=== PATIENT | female | born 1970 | race Caucasian/White ===

== ENCOUNTER 2025-02-28 14:22 | Inpatient (IN) | payer MEDICARE, SELFPAY ==
[2025-02-28] VITALS (119 sets, daily range): BP systolic 74–118; BP diastolic 33–72; PULSE 102–127; RESP 13–40; TEMP 35–39.1; O2SAT 89–100
--- NOTE | 2025-02-28 14:15 | DI.RAD_ITS ---
Exam(s) XR PORTABLE CHEST AP EXAM: XR PORTABLE CHEST AP CLINICAL HISTORY: hypoxia cough TECHNIQUE: 2D digital imaging was performed of the chest. One image was obtained. An AP view was obtained. COMPARISON: No exams were available for comparison FINDINGS: MEDIASTINUM: Normal. HEART: Normal. PULMONARY VASCULATURE: Normal. LUNGS: There are airspace opacities bilaterally in the lungs consistent with pneumonia. The findings are most marked on the right side. PLEURAL SPACE: No pleural effusion or pneumothorax. BONE:Within normal limits for the patient's age. OTHER FINDINGS:Normal. IMPRESSION: 1. Bilateral airspace opacities consistent with multifocal pneumonia. 2. The preliminary [facility] report was reviewed. DATA REPOSITORY: RADIATION DOSE DELIVERED:
--- NOTE | 2025-02-28 14:15 | RT.EKG_ITS ---
APPROVED REPORT Exam: Resting ECG Reason for Exam: AMS Patient Location: E HR:121 bpm ECG Measurements Heart Rate 121 AXIS NJ 153 P 85 QRSd 88 QRS 71 QT 317 T -12 QTc 450 Conclusion Sinus tachycardia...rate> 99 No STEMI
[2025-02-28] MEDS: Normal Saline 1,000 ML 1000 ML IV (14:36)
--- NOTE | 2025-02-28 14:37 | ED.GENADUL_ITS ---
Discharge Plan Discharge Details Chief Complaint: AMS/LOC Admit Date/Time: 02/28/25 21:30 Admit Provider: Kylee Fuentes Attending Provider: Kylee Fuentes Primary Care Provider: Unknown,Unknown ED Provider: Kevin Julian Discharge Data Discharge Date/Time-TO BE ENTERED AT DEPARTURE: 02/28/25 21:34 HPI General Date/Time Provider Initiated Documentation: 02/28/25 14:51 . HPI Narrative: MDM/Narrative: 54-year-old female with no known past medical history significant for respiratory disease or cardiac disease presents for altered mental status hypotension, tachycardia hypoxia in the setting of being diagnosed with COVID yesterday. Vital signs notable for hypotension, tachycardia tachypnea, exam notable for altered mental status, increased work of breathing, rhonchi bilaterally, weak thready pulses in all 4 extremities. Bedside pedraza exam shows no evidence of pericardial effusion, lung sliding bilaterally, however B-lines diffusely, and a impressively collapsible IVC. Given the history and exam findings I am most concerned for septic shock, given the patient is remaining hypoxic on supplemental O2 via nasal cannula, high flow nasal cannula was provided, with significant improvement of work of breathing and oxygenation. Patient was started in the field on norepinephrine, will continue, as well as start blood cultures, 30 mL/kg of IV fluid resuscitation with lactated Ringer's and broad-spectrum antibiotics including vancomycin and cefepime. Given known COVID infection acute hypoxia, will also consider thromboembolic disease as cause for patient's considerable and quick decline since yesterday as per family. Will obtain CT to rule out pulmonary embolism, as well as screening labs including troponin, EKG to rule out possible ischemia. Patient will be admitted, suspect will require ICU level. ED course: Shortly after arrival, patient's work of breathing greatly increased displaying intercostal, supraclavicular and abdominal retractions, with a respiratory rate of 40. Patient then began ripping off of her high flow nasal cannula, given increased work of breathing and significantly elevated respiratory rate patient was intubated for hypoxemic respiratory failure. Patient was continued on pressor support, and was able to maintain maps without significant increase of her norepinephrine drip. Following intubation and nasogastric tube was attempted to be advanced but a patient's RN however met resistance, I then took a video laryngoscope, and visualized the passage of the nasogastric tube into the esophagus and advanced until about 60 cm of the lip. Shortly thereafter I was called bedside as patient became acutely hypoxic, there was concern by RN that the nasogastric tube may have been impeding the patient's ET tube and she retracted the nasogastric tube. Confirmatory chest x-ray shows it is not within the the stomach and sitting at the mid esophagus. Will reevaluate after patient undergo CT imaging to determine final disposition. CT imaging shows no acute thrombus however it is notable for severe multifocal pneumonia. Case discussed with the patient's mother who notes that the patient does have a prior history of IV drug use, suspicious that this may represent a endocarditis, or perhaps an explanation as to how the patient may have contracted a immunomodulating chronic disease such as HIV AIDS that could have led to this severe pneumonia. Case discussed with Dr. Fuentes hospitalist who is in agreement with plan to admit patient as her lactic acidosis has improved, her ABG shows improving pH, she has remained stable on minimal pressure support and oxygen. Disposition: Admit to ICU HPI: 54-year-old female presents for evaluation shortness of breath. As per EMS who provides the bulk of the history, patient tested positive for COVID at home 2 days ago. She was feeling worse today as per family and called EMS when she became acutely short of breath. They noted that she was severely hypoxic on room air down to 60%, as well as hypotensive. Patient was started on nor epi for pressure support, and and supplemental oxygen initially nasal cannula which was not sufficient, however when trialed on BiPAP patient did not tolerate. History of present illness is limited due to the patient's clinical status. ROS: Negative besides as mentioned above Exam: Gen: A&O to person and place, in acute distress HEENT: NCAT, EOMI, not icteric. External ears normal. No rhinorrhea. Moist mucous membranes. Multiple missing teeth Neck: Supple, full range of motion, no observable masses, No meningeal sign. Lungs: Tachypneic, acute respiratory distress, bilateral rhonchorous breath sounds, frequent coughing. CV: Tachycardia, no edema. Abdomen: Soft, nondistended, No rebound tenderness. MSK: No joint swelling, no redness. Skin: No rashes, petechiae, lesions. Normal color per patient. Neuro: Normal Gait, Grossly intact. Psych: Appropriate for situation. Rhythm: Sinus tachycardia Rate: 121 bpm [place]: Normal axis Intervals: Normal intervals Other findings: No acute ST segment or T wave changes to suggest acute ischemia. Labs: 02/28/25 15:05 Blood Blood Culture - Pending 02/28/25 14:32 Blood Blood Culture - Pending Laboratory Tests Range/Units 02/28/25 02/28/25 02/28/25 14:32 17:16 17:25 WBC (4.4-10.8) 10^3/uL 3.32 L RBC (3.93-5.22) 10^6/uL 4.05 Hgb (11.2-15.7) g/dL 9.6 L Hct (36.0-46.0) % 31.4 L MCV (80-95) fL 78 L MCH (27.0-33.0) pg 23.7 L MCHC (32.0-36.0) % 30.6 L RDW (11.7-14.6) % 18.3 H Plt Count (130-400) 10^3/uL 357 MPV (8.0-11.0) fL 9.6 Immature Gran % % 0.0 Neutrophils % % 36.0 Band Neutrophils % % 17 Lymphocytes % % 29.0 Atypical Lymphs % % 4 Monocytes % % 7.0 Eosinophils % % 0.0 Basophils % % 0.0 Metamyelocytes % 7 Nucleated RBC % (0.0-0.3) % 0.0 Absolute Neutrophils (1.2-6.7) 10^3/uL 1.76 Absolute Lymphocytes (1.2-3.4) 10^3/uL 1.10 L Absolute Monocytes (0.1-0.8) 10^3/uL 0.23 Absolute Eosinophils (0.0-0.7) 10^3/uL 0.00 Absolute Basophils (0.0-0.2) 10^3/uL 0.00 RBC Morphology Normal PT (9.1-11.1) sec 12.6 H INR (0.9-1.1) 1.3 H APTT (20.6-30.2) sec 28.1 ABG Sample Site Left Radial ABG pH (7.35-7.45) 7.24 L ABG pCO2 (35-45) mmHg 57 H ABG pO2 (80-105) mmHg 73 L ABG HCO3 (22-26) mmol/L 24 ABG Total CO2 (23-27) mmol/L 23 ABG O2 Saturation (95-98) % 93 L ABG Base Excess (-2-3) mmol/L -4 L VBG pH (7.31-7.41) 7.32 VBG pCO2 (41-51) mmHg 45 VBG pO2 mmHg 48 VBG HCO3 (23-28) mmol/L 23 VBG Total CO2 (24-29) mmol/L 22 L VBG O2 Saturation % 80 VBG Base Excess (-2-3) mmol/L -3 L VBG Lactate (<or=2.0) mmol/L 3.6 H* FiO2 % 65 Sodium (136-145) mmol/L 135 L Potassium (3.5-5.1) mmol/L 2.5 L* Chloride (98-107) mmol/L 101 Carbon Dioxide (20.0-31.0) mmol/L 23.5 Anion Gap (3-11) mmol/L 10.5 BUN (9-23) mg/dL 17 Creatinine (0.55-1.02) mg/dL 0.85 Est GFR (CKD-EPI 2020) (mL/min/1.73m2) 69.91 Glucose (74-106) mg/dL 142 H Calcium (8.3-10.6) mg/dL 7.4 L Magnesium (1.6-2.6) mg/dL 1.3 L Total Bilirubin (0.2-1.2) mg/dL 0.4 AST (<34) U/L 27 ALT (10-49) U/L 15 Alkaline Phosphatase (46-116) U/L 80 Troponin I (<35) ng/L 21 NT-Pro-B Natriuret Pep (<300) pg/mL 2916 H Total Protein (5.7-8.2) g/dL 6.3 Albumin (3.2-5.0) g/dL 3.7 Lipase (<53) U/L 16 Procalcitonin ng/mL 14.05 Urine Color (Yellow) Yellow Urine Clarity (Clear) Clear Urine pH (5-8) 5.5 Ur Specific [place] (1.005-1.025) 1.020 Urine Protein (Neg-Trace) mg/dL 100 H Urine Ketones (Negative) mg/dL Trace H Urine Blood (Negative) Large H Urine Nitrite (Negative) Negative Urine Bilirubin (Negative) Negative Urine Urobilinogen (Up to 0.2) mg/dL 0.2 Ur Leukocyte Esterase (Negative) Small H Urine RBC (0-2) HPF 10-20 H Urine WBC (0-5) HPF 10-20 H Ur Epithelial Cells (Negative) HPF Many Urine Crystals (Negative) HPF Negative Urine Bacteria (Negative) HPF Few Urine Casts (Negative) LPF Negative Urine Mucus (Negative) Negative Ur Culture Indicated? No/Sq. Contamination Urine Glucose (Negative) mg/dL 250 H COVID-19 Source SARS-CoV-2 (PCR) (Negative) Influenza Type A (PCR) (Negative) Influenza Type B (PCR) (Negative) RSV (PCR) (Negative) Range/Units 02/28/25 02/28/25 02/28/25 17:33 20:04 20:08 WBC (4.4-10.8) 10^3/uL RBC (3.93-5.22) 10^6/uL Hgb (11.2-15.7) g/dL Hct (36.0-46.0) % MCV (80-95) fL MCH (27.0-33.0) pg MCHC (32.0-36.0) % RDW (11.7-14.6) % Plt Count (130-400) 10^3/uL MPV (8.0-11.0) fL Immature Gran % % Neutrophils % % Band Neutrophils % % Lymphocytes % % Atypical Lymphs % % Monocytes % % Eosinophils % % Basophils % % Metamyelocytes % Nucleated RBC % (0.0-0.3) % Absolute Neutrophils (1.2-6.7) 10^3/uL Absolute Lymphocytes (1.2-3.4) 10^3/uL Absolute Monocytes (0.1-0.8) 10^3/uL Absolute Eosinophils (0.0-0.7) 10^3/uL Absolute Basophils (0.0-0.2) 10^3/uL RBC Morphology PT (9.1-11.1) sec INR (0.9-1.1) APTT (20.6-30.2) sec ABG Sample Site ABG pH (7.35-7.45) ABG pCO2 (35-45) mmHg ABG pO2 (80-105) mmHg ABG HCO3 (22-26) mmol/L ABG Total CO2 (23-27) mmol/L ABG O2 Saturation (95-98) % ABG Base Excess (-2-3) mmol/L VBG pH (7.31-7.41) VBG pCO2 (41-51) mmHg VBG pO2 mmHg VBG HCO3 (23-28) mmol/L VBG Total CO2 (24-29) mmol/L VBG O2 Saturation % VBG Base Excess (-2-3) mmol/L VBG Lactate (<or=2.0) mmol/L 2.0 FiO2 % Sodium (136-145) mmol/L Potassium (3.5-5.1) mmol/L 2.8 L* Chloride (98-107) mmol/L Carbon Dioxide (20.0-31.0) mmol/L Anion Gap (3-11) mmol/L BUN (9-23) mg/dL Creatinine (0.55-1.02) mg/dL Est GFR (CKD-EPI 2020) (mL/min/1.73m2) Glucose (74-106) mg/dL Calcium (8.3-10.6) mg/dL Magnesium (1.6-2.6) mg/dL Total Bilirubin (0.2-1.2) mg/dL AST (<34) U/L ALT (10-49) U/L Alkaline Phosphatase (46-116) U/L Troponin I (<35) ng/L 32 32 NT-Pro-B Natriuret Pep (<300) pg/mL Total Protein (5.7-8.2) g/dL Albumin (3.2-5.0) g/dL Lipase (<53) U/L Procalcitonin ng/mL Urine Color (Yellow) Urine Clarity (Clear) Urine pH (5-8) Ur Specific [place] (1.005-1.025) Urine Protein (Neg-Trace) mg/dL Urine Ketones (Negative) mg/dL Urine Blood (Negative) Urine Nitrite (Negative) Urine Bilirubin (Negative) Urine Urobilinogen (Up to 0.2) mg/dL Ur Leukocyte Esterase (Negative) Urine RBC (0-2) HPF Urine WBC (0-5) HPF Ur Epithelial Cells (Negative) HPF Urine Crystals (Negative) HPF Urine Bacteria (Negative) HPF Urine Casts (Negative) LPF Urine Mucus (Negative) Ur Culture Indicated? Urine Glucose (Negative) mg/dL COVID-19 Source Nasopharynx SARS-CoV-2 (PCR) (Negative) Positive A Influenza Type A (PCR) (Negative) Negative Influenza Type B (PCR) (Negative) Negative RSV (PCR) (Negative) Negative Range/Units 02/28/25 20:20 WBC (4.4-10.8) 10^3/uL RBC (3.93-5.22) 10^6/uL Hgb (11.2-15.7) g/dL Hct (36.0-46.0) % MCV (80-95) fL MCH (27.0-33.0) pg MCHC (32.0-36.0) % RDW (11.7-14.6) % Plt Count (130-400) 10^3/uL MPV (8.0-11.0) fL Immature Gran % % Neutrophils % % Band Neutrophils % % Lymphocytes % % Atypical Lymphs % % Monocytes % % Eosinophils % % Basophils % % Metamyelocytes % Nucleated RBC % (0.0-0.3) % Absolute Neutrophils (1.2-6.7) 10^3/uL Absolute Lymphocytes (1.2-3.4) 10^3/uL Absolute Monocytes (0.1-0.8) 10^3/uL Absolute Eosinophils (0.0-0.7) 10^3/uL Absolute Basophils (0.0-0.2) 10^3/uL RBC Morphology PT (9.1-11.1) sec INR (0.9-1.1) APTT (20.6-30.2) sec ABG Sample Site Right Radial ABG pH (7.35-7.45) 7.34 L ABG pCO2 (35-45) mmHg 41 ABG pO2 (80-105) mmHg 63 L ABG HCO3 (22-26) mmol/L 22 ABG Total CO2 (23-27) mmol/L 21 L ABG O2 Saturation (95-98) % 92 L ABG Base Excess (-2-3) mmol/L -4 L VBG pH (7.31-7.41) VBG pCO2 (41-51) mmHg VBG pO2 mmHg VBG HCO3 (23-28) mmol/L VBG Total CO2 (24-29) mmol/L VBG O2 Saturation % VBG Base Excess (-2-3) mmol/L VBG Lactate (<or=2.0) mmol/L FiO2 % 60 Sodium (136-145) mmol/L Potassium (3.5-5.1) mmol/L Chloride (98-107) mmol/L Carbon Dioxide (20.0-31.0) mmol/L Anion Gap (3-11) mmol/L BUN (9-23) mg/dL Creatinine (0.55-1.02) mg/dL Est GFR (CKD-EPI 2020) (mL/min/1.73m2) Glucose (74-106) mg/dL Calcium (8.3-10.6) mg/dL Magnesium (1.6-2.6) mg/dL Total Bilirubin (0.2-1.2) mg/dL AST (<34) U/L ALT (10-49) U/L Alkaline Phosphatase (46-116) U/L Troponin I (<35) ng/L NT-Pro-B Natriuret Pep (<300) pg/mL Total Protein (5.7-8.2) g/dL Albumin (3.2-5.0) g/dL Lipase (<53) U/L Procalcitonin ng/mL Urine Color (Yellow) Urine Clarity (Clear) Urine pH (5-8) Ur Specific [place] (1.005-1.025) Urine Protein (Neg-Trace) mg/dL Urine Ketones (Negative) mg/dL Urine Blood (Negative) Urine Nitrite (Negative) Urine Bilirubin (Negative) Urine Urobilinogen (Up to 0.2) mg/dL Ur Leukocyte Esterase (Negative) Urine RBC (0-2) HPF Urine WBC (0-5) HPF Ur Epithelial Cells (Negative) HPF Urine Crystals (Negative) HPF Urine Bacteria (Negative) HPF Urine Casts (Negative) LPF Urine Mucus (Negative) Ur Culture Indicated? Urine Glucose (Negative) mg/dL COVID-19 Source SARS-CoV-2 (PCR) (Negative) Influenza Type A (PCR) (Negative) Influenza Type B (PCR) (Negative) RSV (PCR) (Negative) Radiology: Accession No. : [id number] Creator : KYLEE RUBIN Dictator : KYLEE RUBIN Anode Rebuilder : Hydro Pneumatic Tester : KYLEE RUBIN Approver2 : Report Date : 02/28/2025 16:36:58 * Exam(s) XR PORTABLE CHEST AP EXAM: XR PORTABLE CHEST AP CLINICAL HISTORY: hypoxia cough TECHNIQUE: 2D digital imaging was performed of the chest. One image was obtained. An AP view was obtained. COMPARISON: No exams were available for comparison FINDINGS: MEDIASTINUM: Normal. HEART: Normal. PULMONARY VASCULATURE: Normal. LUNGS: There are airspace opacities bilaterally in the lungs consistent with pneumonia. The findings are most marked on the right side. PLEURAL SPACE: No pleural effusion or pneumothorax. BONE:Within normal limits for the patient's age. OTHER FINDINGS:Normal. IMPRESSION: 1. Bilateral airspace opacities consistent with multifocal pneumonia. 2. The preliminary [facility] report was reviewed. DATA REPOSITORY: RADIATION DOSE DELIVERED: Accession No. : [id number] Creator : KYLEE RUBIN Dictator : KYLEE RUBIN Anode Rebuilder : Hydro Pneumatic Tester : KYLEE RUBIN Approver2 : Report Date : 02/28/2025 22:07:36 * Exam(s) CT CHEST PE CTA EXAM: CT CHEST PE CTA CLINICAL HISTORY: hypoxia, COVID+. TECHNIQUE: Imaging Protocol: Axial CT angiography was performed with multi- slice acquisition and multi-planar and/or 3D reconstructions. Lung Computer Aided Detection (CAD) was utilized. CONTRAST MATERIAL: Intravenous: Omnipaque 350 contrast volume:70 mL COMPARISON: CR,XR XR PORTABLE CHEST AP from 02/28/2025 FINDINGS: The examination is limited due to patient motion artifact. Tracheobronchial tree: Patent where visualized. No bronchiectasis. Pulmonary parenchyma: Multifocal ground-glass opacities and areas of consolidation are present throughout all 5 lobes. There are cavitary changes present within the infiltrates. No architectural distortion. Pulmonary Arteries: No evidence of filling defect to suggest pulmonary emboli. Mediastinum and Janel: No dominant adenopathy or fluid collection. The esophagus is unremarkable. There is a large hiatal hernia. Visualized thyroid gland: Unremarkable. Pleura: No effusion or pneumothorax. Heart: The heart is not dilated. No coronary artery calcifications are seen. No pericardial effusion. Aorta: Thoracic aorta non-dilated. No evidence of dissection. Upper abdomen: Status post cholecystectomy. Status post gastric bypass surgery. Tubes, Catheters, and Lines: The endotracheal tube is in good position at least 3 cm from the edis. The tip of the enteric tube is in the mid esophagus. Soft tissues: Unremarkable. Bones: Within normal limits for the patient's age. IMPRESSION: 1. No evidence of pulmonary embolism, thoracic aortic dissection or aneurysm. 2. Multifocal ground-glass opacities consistent with pneumonia several areas of which show cavitary/cystic changes. Multifocal pneumonia should be considered. Atypical pathogens should be considered. Cavitation with COVID-19 can be a consequence of the infection or the result of co-infection with a bacterial, fungal or mycobacterial pathogen. Septic emboli or underlying cavitary process such as emphysema or bronchiectasis should also be considered. 3. The endotracheal tube is in good position above the edis. 4. The enteric tube tip is seen in the mid esophagus. 5. The preliminary [facility] report was reviewed. RADIATION DOSE DELIVERED: 104.3mGy.cm Total DLP DATA REPOSITORY: All CT scans at this facility are submitted to the National Radiology Data Registry (NRDR) Dose Index Registry (DIR) with the [employer] (A[employer]). RADIATION OPTIMIZATION: All CT scans at this facility use at least one of these dose optimization techniques: automated exposure control; mA and/or kV adjustment per patient size (includes targeted exams where dose is matched to clinical indication); or iterative reconstruction. General Stated Complaint: AMS/LOC TALHA: 2 Course Vital Signs Vital signs: Vital Signs Pulse 125 H 12/21/25 14:23 Respiratory Rate 35 H 02/28/25 14:23 Blood Pressure 93/55 L 02/28/25 14:23 Pulse Oximetry 95 02/28/25 14:23 Pulse 125 H 02/28/25 14:23 Respiratory Rate 35 H 02/28/25 14:23 Blood Pressure 93/55 L 02/28/25 14:23 Blood Pressure Position Sitting 02/28/25 14:23 Pulse Oximetry 95 02/28/25 14:23 Oxygen Delivery Method Non-Rebreather 02/28/25 14:23 Oxygen Flow Rate 60 02/28/25 14:32 Fraction of Inspired Oxygen (FIO2) 58 02/28/25 14:32 Lab/Test Results Lab/Test Results: 02/28/25 14:22 Blood Blood Culture - Pending 02/28/25 14:22 Blood Blood Culture - Pending Procedure Airway Management Date of Procedure: 02/28/25 Patient Consented: Verbally and Emergent Case Indication: Respiratory failure and Reduced level of consciousness Provider that performed the procedure: Kevin Julian Sedation administered by provider performing procedure: Yes. Induction setup: Pt. evaluated prior to induction, Pt. Ramped, Head of Bed Elevated, Rapid Sequence Induction and Cricoid Pressure Applied Airway Type: Intubation Grade: Paralytic(indicate dose given): Succinylcholine (18 mg) Vasoactive Medication(indicate dose given): Norepinephrine (15 ug/hr) Post Induction Medication Management(indicate dose given): Fentanyl IV (mcg/hour) (25) and Propofol (mcg/kg/min) (20) Gastric Tube: Other (Placed by myself under video laryngoscope guidance) Procedure Complications: None Procedure Outcome: Successful Central Line Placement Date of Procedure: 02/28/25 Time of Procedure: 18:45 Provider that performed the procedure: Kevin Julian Indication: Central venous access, Definitive access and Hypotension Patient Consented: Emergent Case Standard Time Out Performed: Yes Sterility: Sterile Laterality: Left Insertion Site: Internal Jugular (IJ) Central Line Type: Triple Lumen Catheter Insertion Procedure: Vessel accessed with needle, Guidewire placed with ease, Extension tubing fills with blood, then empties easily with gravity, Dermatotomy (skin leighton) made with scalpel, Dilator placed without resistance, Introducer/Catheter placed without resistance, Guidewire removed and Claves placed, blood withdrawn, ports flushed and clamped Ultrasound: Other (Used, images not saved) Number of Attempts(see previous attempts in note section): 1 Post Procedure: good blood return, all ports aspirated, flushed, capped and sutured in place with 2-0 silk Post Procedure X-Ray: tip of catheter in good position Dressing: Tegaderm applied and BioPatch applied Procedure Tolerated: No Complications Procedure Outcome: Successful Critical Care Time Critical Care Time Critical Care Time: Yes Total Critical Care Time: 95 Attestation: Upon my evaluation, this patient had a high probability of imminent or life- threatening deterioration due to septic shock, acute respiratory failure, which required my direct attention, intervention, and personal management. I have personally provided [ ] minutes of critical care time exclusive of time spent on separately billable procedures. Time includes review of laboratory data, radiology results, discussion with consultants, and monitoring for potential decompensation. Interventions were performed as documented above, including monitoring of critical vital signs, ordering critical medications from bedside, and re-assessing effectiveness, repeating critical exam findings, and reviewing patients' chart. [facility] All Active Problems (Updated 02/28/25 @ 23:16 by Kylee Fuentes MD) UTI (urinary tract infection) (Acute) Hematuria (Acute) Hiatal hernia (Chronic) COVID (Acute) Low magnesium level (Acute) Low mean corpuscular volume (MCV) (Acute) Elevated brain natriuretic peptide (BNP) level (Acute) Respiratory failure (Acute) Pneumonia (Acute) Medical History (Updated 02/28/25 @ 23:16 by Kylee Fuentes MD) Hypokalemia Social History Smoking/Tobacco Use Status: Unknown Smoking risk assessment performed?: Yes Substance use type: unknown POCUS Exam (ED) [place] Exam DATE OF EXAM: 02/28/25 PROVIDER THAT PERFORMED THE STUDY: Kevin Julian IS THIS A REPEAT EXAM DURING THIS ENCOUNTER: No REASON FOR EXAM: Altered mental status, Hypotension and Shock VISUALIZED STRUCTURES: Cardiac Four Chambers, Heart, Inferior Vena Cava, Lung/left side and Lung/right side PERTINENT FINDINGS/IMPRESSION: Abnormal IVC, details of abnormalities: B-lines throughout lung pandya, collapsible IVC, concerning for pneumosepsis ; lung sliding present on left side, lung sliding present on right side, No global cardiac hypokinesis noted and No pericardial effusion DIFFERENTIAL DIAGNOSES: Septic shock versus obstructive shock INCIDENTAL FINDINGS: B-lines present throughout all lung pandya Echocardiography/Transthoracic Limited Exam: Exam Complete Chest Limited Exam: Exam Complete Abdominal Limited Exam: Did not tolerate exam Retroperitoneal Limited Exam: Did not tolerate exam
[2025-02-28 14:42] LABS: BE (Venous) -3 mmol/L (-2-3); HCO3 (Venous) 23 mmol/L (23-28); O2 Sat (Venous) 80 %; TCO2 (Venous) 22 mmol/L (24-29); pCO2 (Venous) 45 mmHg (41-51); pO2 (Venous) 48 mmHg
[2025-02-28 14:44] LABS: HCT 31.4 % (36.0-46.0); HGB 9.6 g/dL (11.2-15.7); MCH 23.7 pg (27.0-33.0); MCHC 30.6 % (32.0-36.0); MCV 78 fL (80-95); MPV 9.6 fL (8.0-11.0); Platelet Count 357 10^3/uL (130-400); RBC 4.05 10^6/uL (3.93-5.22); RDW 18.3 % (11.7-14.6); RDW-SD 51.4 fL; WBC 3.32 10^3/uL (4.4-10.8)
[2025-02-28] MEDS: Lactated Ringers 1,000 ML 2000 ML IV (14:56)
[2025-02-28 14:57] LABS: Abs Immature Grans 0.00 10^3/uL (0.0-0.06); Immature Grans % 0.0 %; RBC Morphology Normal
--- NOTE | 2025-02-28 15:00 | DI.CT_ITS ---
Exam(s) CT CHEST PE CTA EXAM: CT CHEST PE CTA CLINICAL HISTORY: hypoxia, COVID+. TECHNIQUE: Imaging Protocol: Axial CT angiography was performed with multi- slice acquisition and multi-planar and/or 3D reconstructions. Lung Computer Aided Detection (CAD) was utilized. CONTRAST MATERIAL: Intravenous: Omnipaque 350 contrast volume:70 mL COMPARISON: CR,XR XR PORTABLE CHEST AP from 02/28/2025 FINDINGS: The examination is limited due to patient motion artifact. Tracheobronchial tree: Patent where visualized. No bronchiectasis. Pulmonary parenchyma: Multifocal ground-glass opacities and areas of consolidation are present throughout all 5 lobes. There are cavitary changes present within the infiltrates. No architectural distortion. Pulmonary Arteries: No evidence of filling defect to suggest pulmonary emboli. Mediastinum and Janel: No dominant adenopathy or fluid collection. The esophagus is unremarkable. There is a large hiatal hernia. Visualized thyroid gland: Unremarkable. Pleura: No effusion or pneumothorax. Heart: The heart is not dilated. No coronary artery calcifications are seen. No pericardial effusion. Aorta: Thoracic aorta non-dilated. No evidence of dissection. Upper abdomen: Status post cholecystectomy. Status post gastric bypass surgery. Tubes, Catheters, and Lines: The endotracheal tube is in good position at least 3 cm from the edis. The tip of the enteric tube is in the mid esophagus. Soft tissues: Unremarkable. Bones: Within normal limits for the patient's age. IMPRESSION: 1. No evidence of pulmonary embolism, thoracic aortic dissection or aneurysm. 2. Multifocal ground-glass opacities consistent with pneumonia several areas of which show cavitary/cystic changes. Multifocal pneumonia should be considered. Atypical pathogens should be considered. Cavitation with COVID-19 can be a consequence of the infection or the result of co-infection with a bacterial, fungal or mycobacterial pathogen. Septic emboli or underlying cavitary process such as emphysema or bronchiectasis should also be considered. 3. The endotracheal tube is in good position above the edis. 4. The enteric tube tip is seen in the mid esophagus. 5. The preliminary [facility] report was reviewed. RADIATION DOSE DELIVERED: 104.3mGy.cm Total DLP DATA REPOSITORY: All CT scans at this facility are submitted to the National Radiology Data Registry (NRDR) Dose Index Registry (DIR) with the [employer] ([employer]). RADIATION OPTIMIZATION: All CT scans at this facility use at least one of these dose optimization techniques: automated exposure control; mA and/or kV adjustment per patient size (includes targeted exams where dose is matched to clinical indication); or iterative reconstruction.
[2025-02-28 15:04] LABS: INR 1.3 (0.9-1.1); PTT Activated 28.1 sec (20.6-30.2); Prothrombin Time 12.6 sec (9.1-11.1)
[2025-02-28 15:05] LABS: Lipase 16 U/L (<53); Magnesium 1.3 mg/dL (1.6-2.6); Troponin I 21 ng/L (<35)
[2025-02-28 15:13] LABS: Procalcitonin 14.05 ng/mL
[2025-02-28 15:14] LABS: ALT 15 U/L (10-49); AST 27 U/L (<34); Albumin 3.7 g/dL (3.2-5.0); Alkaline Phosphatase 80 U/L (46-116); Anion Gap 10.5 mmol/L (3-11); BUN 17 mg/dL (9-23); Bilirubin, Total 0.4 mg/dL (0.2-1.2); CO2 23.5 mmol/L (20.0-31.0); Calcium 7.4 mg/dL (8.3-10.6); Chloride 101 mmol/L (98-107); Glucose 142 mg/dL (74-106); Potassium 2.5 mmol/L (3.5-5.1); Sodium 135 mmol/L (136-145); Total Protein 6.3 g/dL (5.7-8.2)
[2025-02-28] MEDS: CEFEPIME 2 GM in Normal Saline 100 ML IVPB (15:14)
[2025-02-28] MEDS: LORazepam 2 MG/ML VIAL IVP (15:22)
[2025-02-28] MEDS: Norepinephrine in D5W 8 MG/250 ML BAG 9.375 MG IV (15:23)
[2025-02-28] MEDS: VANCOMYCIN 1,500 MG in Normal Saline 500 ML 333.3333 MG IVPB (15:27)
--- NOTE | 2025-02-28 15:34 | NUR.NOTE ---
Mother: David Childs - [phone] Nursing Note:
[2025-02-28] MEDS: Normal Saline - Diluent 50 ML VIAL IJ (15:42)
[2025-02-28] MEDS: Normal Saline Flush 10 ML SYR IVP (15:42)
[2025-02-28] MEDS: Omnipaque 350 MG/ML 100 ML BTL IJ (15:42)
--- NOTE | 2025-02-28 15:49 | DI.[facility]_ITS ---
PROCEDURE INFORMATION: Exam: XR Chest Exam date and time: 02/28/2025 3:44 PM Age: 54 years old Clinical indication: Cough and other: Hypoxia, covid+ TECHNIQUE: Imaging protocol: Radiologic exam of the chest. Views: 1 view. COMPARISON: No relevant prior studies available. FINDINGS: Lungs: There are coarse bilateral alveolar infiltrates, right worse than left. The mid to lower half of the right lung is involved. There is more moderate left lower lobe involvement. Pleural spaces: Unremarkable. No pleural effusion. No pneumothorax. Heart/Mediastinum: Unremarkable. No cardiomegaly. Bones/joints: Unremarkable. IMPRESSION: Significant bilateral consolidation, right worse than left. Follow-up to assess clearing recommended. Dictated and Authenticated by: Nisa Sheldon MD. Orderin Iesha Brown MD
[2025-02-28] MEDS: Etomidate 20 MG/10 ML VIAL 18 MG IVP (16:03)
[2025-02-28] MEDS: Succinylcholine 100 MG/5 ML SYR 90 MG IVP (16:04)
[2025-02-28] MEDS: PROPOFOL 1,000 MG/100 ML BTL 1000 MG (16:08)
[2025-02-28] MEDS: Normal Saline 100 ML ×2 (16:10→17:00)
[2025-02-28] MEDS: fentaNYL 1,000 MCG/20 ML VIAL 1000 MCG ×2 (16:17→17:10)
[2025-02-28] MEDS: fentaNYL 100 MCG/2 ML VIAL (16:18)
--- NOTE | 2025-02-28 16:45 | DI.RAD_ITS ---
Exam(s) XR PORTABLE CHEST AP EXAM: XR PORTABLE CHEST AP CLINICAL HISTORY: ET/G - tube confirmation TECHNIQUE: 2D digital imaging was performed of the chest. One image was obtained. An AP view was obtained. COMPARISON: CR,XR XR PORTABLE CHEST AP from 02/28/2025 FINDINGS: MEDIASTINUM: Normal. HEART: Normal. PULMONARY VASCULATURE: Normal. LUNGS: There has been slight worsening of the multifocal opacities since the prior examination. This is particularly noted in the right upper lobe. PLEURAL SPACE: No pleural effusion or pneumothorax. BONE:Within normal limits for the patient's age. OTHER FINDINGS:The tip of the enteric tube is seen in the mid esophagus and should be advanced into the stomach. The endotracheal tube tip is 3 cm above the edis. IMPRESSION: 1. The endotracheal tube tip is in good position 3 cm above the edis. 2. What appears to be the tip of the endotracheal tube is in the midesophagus level. It should be advanced into the stomach and its location confirmed by x- ray prior to usage. 3. Bilateral multifocal pneumonia which is slightly progressed particularly in the right upper lobe. 4. The preliminary [facility] report was reviewed. DATA REPOSITORY: RADIATION DOSE DELIVERED:
--- NOTE | 2025-02-28 17:10 | DI.[facility]_ITS ---
PROCEDURE INFORMATION: Exam: XR Chest Exam date and time: 02/28/2025 4:59 PM Age: 54 years old Clinical indication: Device placement; Other: Et/g - tube confirmation TECHNIQUE: Imaging protocol: Radiologic exam of the chest. Views: 1 view. COMPARISON: CR XR PORTABLE CHEST AP 02/28/2025 3:44 PM FINDINGS: Tubes, catheters and devices: Endotracheal tube in place. The tip is seen at the T4 level. Apparent enteric tube in place with the tip at the mid esophageal level. Lungs: Significant bilateral infiltrates are again seen, right worse than left. Pleural spaces: Unremarkable. No pleural effusion. No pneumothorax. Heart/Mediastinum: Unremarkable. No cardiomegaly. Bones/joints: Unremarkable. IMPRESSION: 1. Endotracheal tube tip at the T4 level. 2. Enteric tube tip at the mid esophageal level. Dictated and Authenticated by: Nisa Sheldon MD. Orderin Iesha Brown MD
[2025-02-28 17:25] LABS: BE -4 mmol/L (-2-3); HCO3 24 mmol/L (22-26)
[2025-02-28 17:26] LABS: FIO2 65 %
[2025-02-28 18:07] LABS: Troponin I 32 ng/L (<35)
[2025-02-28 18:09] LABS: Glucose 250 mg/dL (Negative)
--- NOTE | 2025-02-28 18:22 | DI.[facility]_ITS ---
PROCEDURE INFORMATION: Exam: CTA Chest With Contrast Exam date and time: 02/28/2025 5:53 PM Age: 54 years old Clinical indication: Other: Hypoxia, covid+ TECHNIQUE: Imaging protocol: Computed tomographic angiography of the chest with contrast. Exam focused on the arteries. 3D rendering (Not supervised by radiologist): MIP and/or 3D reconstructed images were created by the technologist. Contrast material: 350; Contrast volume: 70 ml; Contrast route: INTRAVENOUS (IV); COMPARISON: CR XR PORTABLE CHEST AP 02/28/2025 4:59 PM FINDINGS: Tubes, catheters and devices: Endotracheal tube in place. Enteric tube in place with the tip just below the edis. There is a moderate-sized hiatal hernia. Pulmonary arteries: Normal. No pulmonary emboli. Aorta: Unremarkable. No aortic aneurysm. No aortic dissection. Lungs: There are extensive fluffy alveolar infiltrates, many with cavitary changes, right worse than left. Pleural spaces: Unremarkable. No pneumothorax. No pleural effusion. Heart: Unremarkable. No cardiomegaly. No pericardial effusion. Lymph nodes: Unremarkable. No enlarged lymph nodes. Gallbladder and biliary ducts: Status post cholecystectomy. Stomach: It appears the patient is status post gastric bypass. Bones/joints: Unremarkable. No acute fracture. Soft tissues: Unremarkable. Other findings: Respiratory motion slightly limits the exam. IMPRESSION: 1. No evidence for pulmonary embolus. 2. Severe bilateral alveolar infiltrates. There are cavitary/cystic changes involving multiple collections, unusual. Pattern not typical for viral or bacterial process. Dictated and Authenticated by: Nisa Sheldon MD. Orderin Iesha Brown MD
[2025-02-28 18:27] LABS: Potassium 2.8 mmol/L (3.5-5.1)
--- NOTE | 2025-02-28 19:40 | DI.RAD_ITS ---
Exam(s) XR PORTABLE CHEST AP POST LINE EXAM: XR PORTABLE CHEST AP POST LINE CLINICAL HISTORY: Post line pleacment TECHNIQUE: 2D digital imaging was performed of the chest. One image was obtained. An AP view was obtained. COMPARISON: CR,XR XR PORTABLE CHEST AP from 02/28/2025 FINDINGS: The tip of the endotracheal tube is in good position 4.5 cm above the edis. The tip of the enteric tube is again seen in the mid esophagus. There has been interval placement of a central venous catheter. The tip of the catheter is in good position at the junction of the superior vena cava and right atrium. MEDIASTINUM: Normal. HEART: Normal. PULMONARY VASCULATURE: Normal. LUNGS: There is a multifocal airspace process bilaterally most suggestive of multifocal pneumonia. PLEURAL SPACE: No pleural effusion or pneumothorax. BONE:Within normal limits for the patient's age. OTHER FINDINGS:Normal. IMPRESSION: 1. Interval placement of a central venous catheter. The tip of the catheter is in good position at the junction of the superior vena cava and right atrium. 2. The endotracheal tube is in good position above the edis. 3. The tip of the enteric tube is again seen in the mid a soft gas. 4. Multifocal pulmonary opacities consistent with pneumonia. 5. The preliminary [facility] report was reviewed. DATA REPOSITORY: RADIATION DOSE DELIVERED:
--- NOTE | 2025-02-28 20:02 | DI.[facility]_ITS ---
Addendum created by Nisa Sheldon MD on 02/28/2025 8:05:35 PM EST: I discussed case findings with Kevin Julian 02/28/2025 8:05 PM EST. Initial report created on 02/28/2025 8:02:10 PM EST: PROCEDURE INFORMATION: Exam: XR Chest Exam date and time: 02/28/2025 7:46 PM Age: 54 years old Clinical indication: Other vascular access device placement or adjustment; S/P central line placement TECHNIQUE: Imaging protocol: Radiologic exam of the chest. Views: 1 view. COMPARISON: CT CHEST PE CTA 02/28/2025 5:53 PM FINDINGS: Tubes, catheters and devices: Endotracheal tube in place. Enteric tube tip at the mid esophageal level. Left central line catheter in place with the tip at the mid to distal SVC level. Lungs: Bilateral lung infiltrates are unchanged. Pleural spaces: Unremarkable. No pleural effusion. No pneumothorax. Heart/Mediastinum: Unremarkable. No cardiomegaly. Bones/joints: Unremarkable. IMPRESSION: No pneumothorax after line placement. Dictated and Authenticated by: Nisa Sheldon MD. Orderin Iesha Brown MD
[2025-02-28 20:20] LABS: BE -4 mmol/L (-2-3); HCO3 22 mmol/L (22-26)
[2025-02-28 20:27] LABS: FIO2 60 %
[2025-02-28 20:36] LABS: Troponin I 32 ng/L (<35)
[2025-02-28] MEDS: POTASSIUM CHLORIDE 20 MEQ/100 ML BAG 50 MEQ IV INF ×2 (20:59→22:25)
[2025-02-28 21:17] LABS: RSV PCR Negative (Negative)
[2025-02-28 21:27] LABS: COVID-19 PCR Positive (Negative)
[2025-02-28] MEDS: PROPOFOL 1,000 MG/100 ML BTL 11.096 MG IV_INF (21:30)
--- NOTE | 2025-02-28 22:09 | NUR.NOTE ---
Patient was brought in by EMS with history of severe SOB and sats in 70s upon arrival to the patient home. Reports of decreased in mental status was also reported. Patient EMS also reported recent diagnosis of covid 19+. Bilateral IVs in AC noted. However the left IV was dislodged. While in the department patient had labs drawn. RT present High flow oxygen was initiated, patient keeps removing high flow tubing reported that its making her breathing more difficult. patient desats into the 80s when she removes the highflow. MD was informed. Intubation was initiated by Provider Etomidate 18mg given at 16.3, then succinylcholine chloride 90mg pushed given. Lip tubing is 25cm and teeth is at 23cm. NG tube inserted at anchored at 60cm. Patient was bolus with fentanyl 50mcg given bolus @ 1918, then maintained on 100mcg fentanyl @ 25mcg/min @1617. Palacios inserted at 1630 and NG tube @ 1641. Fentanyl 1000mcg was again ordered but to be increased to 50mcg as per MD order. Norephinephine in D5W 8mg in 250mls progressing. Propofol in progress @
[2025-02-28 22:55] LABS: Cannabinoids THC Positive (Negative)
--- NOTE | 2025-02-28 23:02 | W.PM.HP.N ---
Date of service: 02/28/25 Time of Service: 23:02 Assessment and Plan Assessment and plan (1) Pneumonia: Status: Acute Assessment and plan: Blood cultures have been ordered. Continue with fluid resuscitation. Patient is on cefepime and vancomycin. Patient is also currently intubated and will need to be weaned as tolerated. MRSA swab is also pending. Repeat lactate will be drawn every 6 hours. Sputum culture is also pending. (2) Respiratory failure: Status: Acute Assessment and plan: Currently on a ventilator, wean as tolerated. (3) Hypokalemia: Assessment and plan: Replacing with IV fluids normal saline with 20 mill equivalents of KCl. (4) Elevated brain natriuretic peptide (BNP) level: Status: Acute Assessment and plan: Will check an echocardiogram. Patient does not have a history of congestive heart failure at least formally. (5) Low mean corpuscular volume (MCV): Status: Acute Assessment and plan: Consider outpatient evaluation and low MCV. (6) Low magnesium level: Status: Acute Assessment and plan: Will replace. (7) COVID: Status: Acute Assessment and plan: Started remdesivir 200 mg IV x 1 will need to have discontinued at 100 mg IV for the next ensuing days. (8) Hiatal hernia: Status: Chronic Assessment and plan: Consider surgical consult in the a.m. to see an endoscopy needs to be performed. (9) Hematuria: Status: Acute Assessment and plan: Repeat UA in 4 to 6 weeks to ensure resolution. (10) UTI (urinary tract infection): Status: Acute Assessment and plan: Urine cultures pending. History of Present Illness History of Present Illness Chief Complaint: septic shock/respiratory failure/pneumonia Narrative: Ms Monroy is a 54-year-old female who was diagnosed with COVID yesterday. Provider said she took a [id number] test. This H&P is completely through chart review discussion with the ED physician as the patient is currently intubated. Patient was noted to have worsening shortness of breath and activated EMS who noted significant hypoxia as well as hypotension in the field. Patient was given blood pressure support with Levophed and transferred to the ED for further evaluation and treatment. Originally the patient was started on BiPAP with some improvement but then became more more restless and short of breath necessitating a intubation. The patient had a central line placed by Dr Catalan of the ED service as well as the intubation. Patient was started on antibiotics and given appropriate fluid resuscitation. I was paged to admit the patient to the ICU for further evaluation and treatment. In regards to her clinical data blood cultures are pending. Her white count is 3.32 with an H&H of 9.6 and 31.4 respectively. Her MCV is 78. Patient's INR is 1.3 with a PT of 12.6 and a PTT of 28 ABG does show pH of 7.34, pCO2 41, pO2 63, O2 sat of 92, base excess -4. CMP MP shows sodium of 135 his potassium of 2.8 BUN and creatinine of 70 and 0.85 respectively. Calcium is low at 7.4 magnesium is low at 1.3. proBNP is 2916 and we do not have any other data points for this. Urinalysis does show hematuria as well as small elevation leukocyte esterase. Urine drug screen is positive for benzodiazepines cocaine and cannabinoids. Respiratory viral panel is positive for COVID. In regards to her imaging CT chest as well as multiple x-rays were performed which did show multifocal pneumonia. The patient did have an NG tube placed that apparently due to a hiatal hernia that did not get into the stomach. This is from report from the ED physician. In regards to the SIRS criteria she was positive for tachycardia as well as leukopenia. The patient does have a source of infection which is in her lungs and she does need pressure support which makes her qualify for septic shock diagnosis. Review of Systems Unobtainable due to endotracheal tube FORMERLY [facility], [facility]–1983 All Active Problems (Updated 02/28/25 @ 23:16 by Stu Fuentes MD) UTI (urinary tract infection) (Acute) Hematuria (Acute) Hiatal hernia (Chronic) COVID (Acute) Low magnesium level (Acute) Low mean corpuscular volume (MCV) (Acute) Elevated brain natriuretic peptide (BNP) level (Acute) Respiratory failure (Acute) Pneumonia (Acute) Medical History (Updated 02/28/25 @ 23:16 by Stu Fuentes MD) Hypokalemia Social History Smoking/Tobacco Use Status: Unknown Smoking risk assessment performed?: Yes Substance use type: unknown Exam Narrative Exam Narrative: HEENT NG tube in place. ET tube is in place Neck Central line is in place on the left side Cardiovascular regular rate and rhythm no murmurs gallops Pulmonary bilateral wheeze with crackles abdomen scaphoid extremities no sinus clubbing or edema Neurologic cannot be completely assessed due to underlying illness Results Labs 02/28/25 14:32 02/28/25 17:33 Labs: Laboratory Results - last 24 hr 02/28/25 02/28/25 02/28/25 14:32 17:16 17:25 WBC 3.32 L RBC 4.05 Hgb 9.6 L Hct 31.4 L MCV 78 L MCH 23.7 L MCHC 30.6 L RDW 18.3 H Plt Count 357 MPV 9.6 Immature Gran % 0.0 Neutrophils % 36.0 Band Neutrophils % 17 Lymphocytes % 29.0 Atypical Lymphs % 4 Monocytes % 7.0 Eosinophils % 0.0 Basophils % 0.0 Metamyelocytes % 7 Nucleated RBC % 0.0 Absolute Neutrophils 1.76 Absolute Lymphocytes 1.10 L Absolute Monocytes 0.23 Absolute Eosinophils 0.00 Absolute Basophils 0.00 RBC Morphology Normal PT 12.6 H INR 1.3 H APTT 28.1 ABG Sample Site Left Radial ABG pH 7.24 L ABG pCO2 57 H ABG pO2 73 L ABG HCO3 24 ABG Total CO2 23 ABG O2 Saturation 93 L ABG Base Excess -4 L VBG pH 7.32 VBG pCO2 45 VBG pO2 48 VBG HCO3 23 VBG Total CO2 22 L VBG O2 Saturation 80 VBG Base Excess -3 L VBG Lactate 3.6 H* FiO2 65 Sodium 135 L Potassium 2.5 L* Chloride 101 Carbon Dioxide 23.5 Anion Gap 10.5 BUN 17 Creatinine 0.85 Est GFR (CKD-EPI 2020) 69.91 Glucose 142 H Calcium 7.4 L Magnesium 1.3 L Total Bilirubin 0.4 AST 27 ALT 15 Alkaline Phosphatase 80 Troponin I 21 NT-Pro-B Natriuret Pep 2916 H Total Protein 6.3 Albumin 3.7 Lipase 16 Procalcitonin 14.05 Urine Color Yellow Urine Clarity Clear Urine pH 5.5 Ur Specific [place] 1.020 Urine Protein 100 H Urine Ketones Trace H Urine Blood Large H Urine Nitrite Negative Urine Bilirubin Negative Urine Urobilinogen 0.2 Ur Leukocyte Esterase Small H Urine RBC 10-20 H Urine WBC 10-20 H Ur Epithelial Cells Many Urine Crystals Negative Urine Bacteria Few Urine Casts Negative Urine Mucus Negative Ur Culture Indicated? No/Sq. Contamination Urine Glucose 250 H Urine Opiates Screen Urine Methadone Screen Ur Barbiturates Screen Ur Tricyclics Screen Ur Amphetamines Screen U Benzodiazepines Scrn Urine Cocaine Screen U Cannabinoids Screen COVID-19 Source SARS-CoV-2 (PCR) Influenza Type A (PCR) Influenza Type B (PCR) RSV (PCR) 02/28/25 02/28/25 02/28/25 17:33 20:04 20:08 WBC RBC Hgb Hct MCV MCH MCHC RDW Plt Count MPV Immature Gran % Neutrophils % Band Neutrophils % Lymphocytes % Atypical Lymphs % Monocytes % Eosinophils % Basophils % Metamyelocytes % Nucleated RBC % Absolute Neutrophils Absolute Lymphocytes Absolute Monocytes Absolute Eosinophils Absolute Basophils RBC Morphology PT INR APTT ABG Sample Site ABG pH ABG pCO2 ABG pO2 ABG HCO3 ABG Total CO2 ABG O2 Saturation ABG Base Excess VBG pH VBG pCO2 VBG pO2 VBG HCO3 VBG Total CO2 VBG O2 Saturation VBG Base Excess VBG Lactate 2.0 FiO2 Sodium Potassium 2.8 L* Chloride Carbon Dioxide Anion Gap BUN Creatinine Est GFR (CKD-EPI 2020) Glucose Calcium Magnesium Total Bilirubin AST ALT Alkaline Phosphatase Troponin I 32 32 NT-Pro-B Natriuret Pep Total Protein Albumin Lipase Procalcitonin Urine Color Urine Clarity Urine pH Ur Specific [place] Urine Protein Urine Ketones Urine Blood Urine Nitrite Urine Bilirubin Urine Urobilinogen Ur Leukocyte Esterase Urine RBC Urine WBC Ur Epithelial Cells Urine Crystals Urine Bacteria Urine Casts Urine Mucus Ur Culture Indicated? Urine Glucose Urine Opiates Screen Urine Methadone Screen Ur Barbiturates Screen Ur Tricyclics Screen Ur Amphetamines Screen U Benzodiazepines Scrn Urine Cocaine Screen U Cannabinoids Screen COVID-19 Source Nasopharynx SARS-CoV-2 (PCR) Positive A Influenza Type A (PCR) Negative Influenza Type B (PCR) Negative RSV (PCR) Negative 02/28/25 02/28/25 02/28/25 20:20 21:59 22:00 WBC RBC Hgb Hct MCV MCH MCHC RDW Plt Count MPV Immature Gran % Neutrophils % Band Neutrophils % Lymphocytes % Atypical Lymphs % Monocytes % Eosinophils % Basophils % Metamyelocytes % Nucleated RBC % Absolute Neutrophils Absolute Lymphocytes Absolute Monocytes Absolute Eosinophils Absolute Basophils RBC Morphology PT INR APTT ABG Sample Site Right Radial ABG pH 7.34 L ABG pCO2 41 ABG pO2 63 L ABG HCO3 22 ABG Total CO2 21 L ABG O2 Saturation 92 L ABG Base Excess -4 L VBG pH VBG pCO2 VBG pO2 VBG HCO3 VBG Total CO2 VBG O2 Saturation VBG Base Excess VBG Lactate 1.8 FiO2 60 Sodium Potassium Chloride Carbon Dioxide Anion Gap BUN Creatinine Est GFR (CKD-EPI 2020) Glucose Calcium Magnesium Total Bilirubin AST ALT Alkaline Phosphatase Troponin I NT-Pro-B Natriuret Pep Total Protein Albumin Lipase Procalcitonin Urine Color Urine Clarity Urine pH Ur Specific [place] Urine Protein Urine Ketones Urine Blood Urine Nitrite Urine Bilirubin Urine Urobilinogen Ur Leukocyte Esterase Urine RBC Urine WBC Ur Epithelial Cells Urine Crystals Urine Bacteria Urine Casts Urine Mucus Ur Culture Indicated? Urine Glucose Urine Opiates Screen Negative Urine Methadone Screen Negative Ur Barbiturates Screen Negative Ur Tricyclics Screen Negative Ur Amphetamines Screen Negative U Benzodiazepines Scrn Positive A Urine Cocaine Screen Positive A U Cannabinoids Screen Positive A COVID-19 Source SARS-CoV-2 (PCR) Influenza Type A (PCR) Influenza Type B (PCR) RSV (PCR) Last Vital Signs Temp 37.7 C H 02/28/25 17:04 Pulse 115 H 02/28/25 21:47 Resp 18 02/28/25 21:47 BP 94/58 L 02/28/25 21:46 Pulse Ox 92 02/28/25 22:50 VTE Prohylaxis Risk Level: Moderate/High Risk Contraindications: None Prophylaxis: Pharmacologic Time Spent Time spent with Patient: >75 minutes Time was spent: preparing to see the patient(eg.review tests), obtaining and/or reviewing separately otained hiistory, ordering medications,tests, procedures, referring, communicating with other health childcare teacher, indepentently interpreting results, counseling the patient and care coordination
[2025-03-01] VITALS (233 sets, daily range): BP systolic 65–126; BP diastolic 45–82; PULSE 91–215; RESP 15–43; TEMP 37.1–39.3; O2SAT 86–100
--- NOTE | 2025-03-01 | DI.RAD_ITS ---
Exam(s) XR PORTABLE CHEST AP EXAM: XR PORTABLE CHEST AP CLINICAL HISTORY: advanced ET tube. TECHNIQUE: 2D digital imaging was performed. COMPARISON: CR XR PORTABLE CHEST AP from 03/01/2025 FINDINGS: Single AP portable view. Distal tip of the NG tube is in the stomach. Distal tip of the endotracheal tube is approximately 4.5 cm above the edis. Distal tip of left supra clavi in central line is at the SVC-RA junction Heart size normal mediastinum is not widened. Extensive bilateral right greater than left infiltrates are again noted. Mild improvement on the left side. No improvement on the right side. There are no obvious pleural effusions. IMPRESSION: Persistent extensive bilateral infiltrates, right more than left. There may be some improvement in the left lung appearance when compared to earlier same date. DATA REPOSITORY: RADIATION DOSE DELIVERED:
[2025-03-01 00:03] LABS: MRSA PCR Negative (Negative)
[2025-03-01] MEDS: POTASSIUM CHLORIDE/0.9% NACL 1,000 ML 150 MEQ IV ×2 (00:07→08:51)
[2025-03-01] MEDS: CEFEPIME 2 GM in Normal Saline 100 ML IVPB ×3 (00:08→21:45)
[2025-03-01] MEDS: Enoxaparin 40 MG/0.4 ML SYR SC (00:11)
[2025-03-01] MEDS: Norepinephrine in D5W 8 MG/250 ML BAG 37.5 MG IV ×3 (00:43→14:57)
[2025-03-01] MEDS: ACETAMINOPHEN 1,000 MG/100 ML BAG 400 MG IVPB ×2 (00:57→17:20)
[2025-03-01] MEDS: dexmedeTOMidine IN 0.9 % NACL 400 MCG/100 ML BTL IV (01:30)
[2025-03-01] MEDS: LORazepam 2 MG/ML VIAL IVP (01:47)
--- NOTE | 2025-03-01 02:17 | RESPIRATORY ---
0038: This RT responded to medical alert response. Pt.was being bag masked by RN at bedside and reported pt. self extubated. Patient was appeared to be alert, awake and talking in full sentences despite requiring high O2. MDs and RNs were present upon arrival. Pt. switched to non-rebreather mask at 10L/min of O2 and was maintaining SpO2 high 80's then this RT turned it up to max. flow that helped to bring SpO2 to at least 92%. Re-intubation was not suitable at this time per MDs based on pt's situation and decision was made to trail on either heated HFNC or NIV. Based on pt. requiring high concentration of O2 and positive pressure support for respiratory distress that pt. being in slight-moderate WOB, goal was made to place patient on CPAP if tolerates if not then place on heated HFNC due to pt. rejecting NIV many times earlier prior to intubation per MD. Pt. actually tolerated well on CPAP at this time then switched to BIPAP for pt's comfort. Pt. remained on BiPAP 10/5 and FiO2 60%. MD is notified of NIV settings and adjustment.
[2025-03-01] MEDS: Normal Saline Flush 10 ML SYR IVP ×5 (02:28→21:37)
[2025-03-01] MEDS: methylPREDNISolone SUCC 125 MG VIAL 60 MG IVP (02:29)
[2025-03-01] MEDS: REMDESIVIR 200 MG in Normal Saline 250 ML 250 MG IVPB (03:19)
[2025-03-01] MEDS: Water,Injection,Sterile 10 ML VIAL (03:28)
[2025-03-01 04:17] LABS: Vancomycin, Random 9.9 ug/mL
[2025-03-01 05:52] LABS: BE (Venous) -8 mmol/L (-2-3); HCO3 (Venous) 19 mmol/L (23-28); O2 Sat (Venous) 84 %; TCO2 (Venous) 19 mmol/L (24-29); pCO2 (Venous) 41 mmHg (41-51); pO2 (Venous) 53 mmHg
[2025-03-01 06:01] LABS: Abs Immature Grans 0.19 10^3/uL (0.0-0.06); HCT 29.2 % (36.0-46.0); HGB 9.0 g/dL (11.2-15.7); MCH 23.9 pg (27.0-33.0); MCHC 30.8 % (32.0-36.0); MCV 78 fL (80-95); MPV 9.2 fL (8.0-11.0); Platelet Count 356 10^3/uL (130-400); RBC 3.77 10^6/uL (3.93-5.22); RDW 18.6 % (11.7-14.6); RDW-SD 51.8 fL; WBC 2.18 10^3/uL (4.4-10.8)
[2025-03-01 06:23] LABS: ALT 20 U/L (10-49); AST 41 U/L (<34); Albumin 3.0 g/dL (3.2-5.0); Alkaline Phosphatase 59 U/L (46-116); Anion Gap 11 mmol/L (3-11); BUN 21 mg/dL (9-23); Bilirubin, Total 0.2 mg/dL (0.2-1.2); CO2 20.0 mmol/L (20.0-31.0); Calcium 6.8 mg/dL (8.3-10.6); Chloride 106 mmol/L (98-107); Glucose 103 mg/dL (74-106); Potassium 4.0 mmol/L (3.5-5.1); Sodium 137 mmol/L (136-145); Total Protein 5.2 g/dL (5.7-8.2)
[2025-03-01 06:40] LABS: PTT Activated 45.7 sec (20.6-30.2)
[2025-03-01 07:03] LABS: RBC Morphology Normal
[2025-03-01] MEDS: Haloperidol 5 MG/ML VIAL 2 MG IM/IV (07:15)
[2025-03-01 07:24] LABS: Lab Add On Test DONE
[2025-03-01 07:46] LABS: Magnesium 1.3 mg/dL (1.6-2.6)
--- NOTE | 2025-03-01 08:09 | INITIAL_ITS ---
Date of service: 03/01/25 Time of Service: 08:09 Care Management Initial Assmt Initial Assessment Reason for Hospitalization: pneumonia Functional Status/Living Situation Patient Presentation: Chaya was lying in bed when CM rounded in the ICU. She is on Covid precautions so CM was not able to see her in person this morning. Chaya extubated herself during the night around midnight but was re-intubated this afternoon. She was initially placed on Bipap but was not able to tolerate the mask. [place] received a call from Chaya's mother David Childs who is out of state. She had spoken to Chaya this morning who informed her that she wanted to leave because she was not being well treated here. [place]IS discussed the situation with staff who was able to confirm that Chaya is confused and very anxious at baseline. Her mother confirmed the anxiety and stated that she is also bipolar and had not taken her medication in a while. CM called David back and explained about the confusion and she stated she understood. Dr. Carter had also called her and updated her, answering questions and reassuring her about Chaya's care. Town of Residence: [place] Resides with: Other (staying with Aunt) Significant Other/Family: Out of area (mother in [place]) Natural Supports: mother, aunt and cousin Employment Status: Disabled Instrumental Activities of Daily Living (ADLs): Independent Medications Medication Management: No Issues/Barriers identified Advance Directives Advance Directives: Do you have an Advance Directive: AD On File at [facility]: N 02/28/25, 15:23 Date Asked 02/28/25 02/28/25, 15:23 AD Date Reviewed COLST On File at [facility] COLST Date Scanned Code Status Resuscitation Status Full Code Portal Pt does not currently have a portal and education provided: Yes Insurance Coverage/Financial Issues Insurance: [employer] Medicare Replacement Care Team Visit Care Team Role Provider Type Arturo Carter MD [facility] STAFF PHYSICIAN Unknown Unknown Primary Care Provider STAFF PHYSICIAN Kevin Julian MD Emergency Provider [facility] STAFF PHYSICIAN Stu Fuentes MD Admit Provider [facility] STAFF PHYSICIAN Attending Provider Discharge Potential Discharge Needs: PCP F/U Appt Anticipated Barriers to Discharge: None Identified Patient/Family Education Needs: Review discharge instructions, discuss Ask Me Three Transportation: Private vehicle Plan: Anticipate Chaya will be discharged home with no new services when medically stable. She will follow up with her PCP and plan of care and transport with family. CM will follow and continue to support discharge planning efforts. Social Determinants of Health Screening Will the Patient Participate in the Screening?: Unable to obtain PFSH All Active Problems (Updated 03/01/25 @ 14:30 by Arturo Carter) Septic shock (Acute) Bipolar 1 disorder (Acute) Cocaine abuse (Acute) Gram-positive cocci bacteremia (Acute) Acute respiratory failure with hypoxia and hypercarbia (Acute) UTI (urinary tract infection) (Acute) Hematuria (Acute) Hiatal hernia (Chronic) COVID (Acute) Low magnesium level (Acute) Low mean corpuscular volume (MCV) (Acute) Elevated brain natriuretic peptide (BNP) level (Acute) Respiratory failure (Acute) Pneumonia (Acute) Medical History (Updated 03/01/25 @ 14:30 by Arturo Carter) ADHD Hypokalemia Social History Smoking/Tobacco Use Status: Unknown Smoking risk assessment performed?: Yes Substance use type: unknown
[2025-03-01] MEDS: Magnesium Oxide 400 MG TAB PO (08:39)
[2025-03-01] MEDS: MORPHine 2 MG/ML SYR IVP (08:39)
[2025-03-01] MEDS: Dexamethasone 4 MG/ML VIAL 6 MG IVP (09:19)
[2025-03-01] MEDS: NORMAL SALINE IVPB (09:20)
[2025-03-01] MEDS: TOCILIZUMAB IVPB (09:20)
[2025-03-01] MEDS: Enoxaparin 60 MG/0.6 ML SYR SC ×2 (09:20→21:44)
[2025-03-01] MEDS: VANCOMYCIN/WATER (PEG) 1 GM/200 ML BAG IVPB ×2 (10:04→20:30)
[2025-03-01] MEDS: dexmedeTOMidine IN 0.9 % NACL 400 MCG/100 ML BTL 12.329 MCG IV (10:14)
[2025-03-01] MEDS: Pantoprazole 40 MG VIAL IVP (11:20)
[2025-03-01] MEDS: Ketamine 500 MG/10 ML VIAL 30 MG IVP (11:43)
--- NOTE | 2025-03-01 11:46 | PHACLINREV_ITS ---
Pharmacy Admission Review Admission Clinical Review Admission Pharmacy Review: UTI (urinary tract infection) (Acute) Hematuria (Acute) COVID (Acute) Low magnesium level (Acute) Low mean corpuscular volume (MCV) (Acute) Elevated brain natriuretic peptide (BNP) level (Acute) Respiratory failure (Acute) Pneumonia (Acute) No Known Allergies Allergy (Unverified 03/01/25 09:24) Resuscitation Status Full Code Height 6 ft 6 in Weight 61.6 kg Pharmacy Admission Review Renal Dosing Renal Dosing: BUN 21 mg/dL (9-23) 03/01/25 05:39 Creatinine 0.75 mg/dL (0.55-1.02) 03/01/25 05:39 Medications needing adjustments: Reviewed (CrCl 84.15 mL/min) List of meds needing interventions: Current medications are okay Anticoagulation Anticoagulation: Hgb 9.0 g/dL (11.2-15.7) L 03/01/25 05:35 Hct 29.2 % (36.0-46.0) L 03/01/25 05:35 Plt Count 356 10^3/uL (130-400) 03/01/25 05:35 INR 1.3 (0.9-1.1) H 02/28/25 14:32 Creatinine 0.75 mg/dL (0.55-1.02) 03/01/25 05:39 Therapeutic Anticoagulation: Reviewed Medications: Enoxaparin (60mg q12h) Relevant Labs Relevant Labs: Sodium 137 mmol/L (136-145) 03/01/25 05:39 Potassium 4.0 mmol/L (3.5-5.1) D 03/01/25 05:39 Chloride 106 mmol/L (98-107) 03/01/25 05:39 Magnesium 1.3 mg/dL (1.6-2.6) L 03/01/25 03:04 Electrolytes, C-Reactive P, ESR: Reviewed (has order for Mg oxide 400mg BID) Cardiac Review Cardiac Review: Troponin I 32 ng/L (<35) 02/28/25 20:04 NT-Pro-B Natriuret Pep 2916 pg/mL (<300) H 02/28/25 14:32 Blood Pressure : Heart Rate 99/74 : 123 1046 Blood Pressure : Heart Rate 91/65 : 118 1030 Blood Pressure : Heart Rate 96/61 : 118 1016 Blood Pressure : Heart Rate 100/66 : 114 1001 Blood Pressure : Heart Rate 92/62 : 116 0946 Blood Pressure : Heart Rate 101/62 : 115 0931 Blood Pressure : Heart Rate 86/71 : 119 0915 Blood Pressure : Heart Rate 85/56 : 112 0900 Blood Pressure : Heart Rate 91/59 : 114 0845 Blood Pressure : Heart Rate 83/70 : 91 0831 Blood Pressure : Heart Rate 94/76 : 91 0816 Blood Pressure : Heart Rate 81/53 : 190 0800 BP, HR, EF%: Reviewed List meds needing interventions: Has order for Precedex infusion at 0.8mcg/kg/hr and norepi infusion at 20 mcg/min. Has order also for propofol order but not currently running. Will ask provider if that can be discontinued if patient is not intubated again. QTc Review QTc: Reviewed (450 from 02/28/25) IV to PO Switch IV Medications: Reviewed (was intubated but self extubated over night. Per prov ider may need to intubate again depending on if patient improves or not this morning) Home Meds Home Med List reviewed: Reviewed Relevent Home Meds Not ordered & why?: No known home meds Current Meds Current Medication Order Review: Reviewed Pharmacy Antibiotic Review Relevant Labs: Relevant Labs 02/28/25 14:32 Procalcitonin 14.05 WBC 2.18 10^3/uL (4.4-10.8) L 03/01/25 05:35 Procalcitonin 14.05 ng/mL 02/28/25 14:32 Temperature 37.1 C Temperature 39.3 C Microbiology 02/28/25 14:32 Blood Culture - Preliminary Blood Gram positive cocci 02/28/25 15:05 Blood Culture - Preliminary Blood Gram positive cocci Pharmacy Antibiotic Activity: C/S review and Reviewed, no change Comments: Patient is on vancomycin and cefepime, day 1, for PNA/UTI/septic shock. Per provider patient as risk for endocarditis. Vancomycin level was 9.9 this morning at 0300. Increased dose to 1000mg q12h with predicted AUC of 571. Will order another level if any significant changes in renal function or prolonged therapy required. Patient is also on remdesivir, day 1, for COVID. Patient received the initial 200mg IV dose this morning at 0319/ Order for the 100mg IV daily was not put in, asked provider if they wanted the remdesivir continued. Provider put in order, as well as a now one order for tocilizumab. Weight based dose was 490mg, only had 480mg in stock. Provider aware and dose changed to 480mg.
[2025-03-01 12:41] LABS: BE (Venous) -10 mmol/L (-2-3); HCO3 (Venous) 17 mmol/L (23-28); O2 Sat (Venous) 87 %; TCO2 (Venous) 17 mmol/L (24-29); pCO2 (Venous) 39 mmHg (41-51); pO2 (Venous) 57 mmHg
--- NOTE | 2025-03-01 13:32 | PGE_ITS ---
Date of Service Date of service: 03/01/25 Time of Service: 13:32 Assessment and Plan Assessment and plan (1) Septic shock: Status: Acute Assessment and plan: Source GPC bacteremia. S/p 30+ ml/kg fluid in the ED and started on pressors in the ED Lactate did improve and urine output has been adequate Still some metabolic acidosis, change fluids to bicarb for one liter We have central line Monitor in ICU (2) Gram-positive cocci bacteremia: Status: Acute Assessment and plan: Cause of above. MRSA nares negative, but cover until cultures/sensitivities return. (3) Pneumonia: Status: Acute Assessment and plan: Multifocal pneumonia on CT Secondary to COVID plus bacterial superinfection. With GPC clusters in blood and cavitary lesions on CT, I suspect staph aureus Continue cefepime and vanco also consider atypicals/fungal, send fungitel along with culture (4) COVID: Status: Acute Assessment and plan: Started remdesivir 200 mg, will continue With respiratory failure added dexamethasone and Tocilizumab Full dose anticoagulation with clot risk. (5) Acute respiratory failure with hypoxia and hypercarbia: Status: Acute Assessment and plan: Hypercarbia resolved with high respiratory rate. She has been in significant distress since extubation despite supportive medications. Anesthesia to reintubate Will will need to be more aggressive with sedation to avoid self-extubation On propofol and precedex to start, consider ketamine drip if pressures soft but sedation needed. (6) Cocaine abuse: Status: Acute Assessment and plan: Noted on admission, which indicates active street drug use. she denies recent IVDU or current opioids, but fentanyl would not be picked up on UDS Get HIV/Hep screen. WBCs are low. (7) Bipolar 1 disorder: Status: Acute Assessment and plan: We were able to get at least some of medication list She has not been taking regularly so will not resume lamotrigine as would carry SJS risk Hold propranolol with low BP Give quetiapine for anxiety/mood via NGT (8) Low magnesium level: Status: Acute Assessment and plan: Give additional magnesium to stabilize heart, may help breathing, follow Subjective Subjective Patient reports: denies diarrhea, vomiting or fever Interval history since last seen: Events: Self-Extubated just after midnight Started on tocilzumab, dexamethasone for COVID Anticoagulation to full therapeutic dosing with COVID Blood growing GPC clusters, MRSA nares negative She is having difficulty tolerating BiPAP. Given lorazepam 2mg, morphine 2mg, fentanyl 50mcg, ketamine 30mg (0.5mg/kg) without significant improvement in agitation. Chaya states she hurts all over, her back hurts to breath. She states she was on medication for bipolar. I did talk to her mother who gave me her psychiatric provider and home pharmacy in [place]. Exam Narrative Exam Narrative: Gen: Alert, agititation, clammy, pulling at mask at times HEENT: MMM, no icterus, no OP lesions or deformity notable with limited exam, neck supple Lungs: Scattered rodríguez rales and expiratory wheeze. Tachypneic arond 40 Abd: soft, NT/ND Ext: no cyanosis, clubbing or edema. Warm. Skin: not mottled, no rash/open wound Objective Last Vital Signs Temp 37.1 C 03/01/25 05:20 Pulse 123 H 03/01/25 10:46 Resp 16 03/01/25 10:46 BP 99/74 L 03/01/25 10:46 Pulse Ox 93 03/01/25 10:41 Laboratory Results - last 24 hr 02/28/25 02/28/25 02/28/25 14:32 17:16 17:25 WBC 3.32 L RBC 4.05 Hgb 9.6 L Hct 31.4 L MCV 78 L MCH 23.7 L MCHC 30.6 L RDW 18.3 H Plt Count 357 MPV 9.6 Immature Gran % 0.0 Neutrophils % 36.0 Band Neutrophils % 17 Lymphocytes % 29.0 Atypical Lymphs % 4 Monocytes % 7.0 Eosinophils % 0.0 Basophils % 0.0 Metamyelocytes % 7 Nucleated RBC % 0.0 Absolute Neutrophils 1.76 Absolute Lymphocytes 1.10 L Absolute Monocytes 0.23 Absolute Eosinophils 0.00 Absolute Basophils 0.00 RBC Morphology Normal PT 12.6 H INR 1.3 H APTT 28.1 ABG Sample Site Left Radial ABG pH 7.24 L ABG pCO2 57 H ABG pO2 73 L ABG HCO3 24 ABG Total CO2 23 ABG O2 Saturation 93 L ABG Base Excess -4 L VBG pH 7.32 VBG pCO2 45 VBG pO2 48 VBG HCO3 23 VBG Total CO2 22 L VBG O2 Saturation 80 VBG Base Excess -3 L VBG Lactate 3.6 H* FiO2 65 Sodium 135 L Potassium 2.5 L* Chloride 101 Carbon Dioxide 23.5 Anion Gap 10.5 BUN 17 Creatinine 0.85 Est GFR (CKD-EPI 2020) 69.91 Glucose 142 H Calcium 7.4 L Magnesium 1.3 L Total Bilirubin 0.4 AST 27 ALT 15 Alkaline Phosphatase 80 Troponin I 21 NT-Pro-B Natriuret Pep 2916 H Total Protein 6.3 Albumin 3.7 Lipase 16 Procalcitonin 14.05 Urine Color Yellow Urine Clarity Clear Urine pH 5.5 Ur Specific [place] 1.020 Urine Protein 100 H Urine Ketones Trace H Urine Blood Large H Urine Nitrite Negative Urine Bilirubin Negative Urine Urobilinogen 0.2 Ur Leukocyte Esterase Small H Urine RBC 10-20 H Urine WBC 10-20 H Ur Epithelial Cells Many Urine Crystals Negative Urine Bacteria Few Urine Casts Negative Urine Mucus Negative Ur Culture Indicated? No/Sq. Contamination Urine Glucose 250 H Random Vancomycin Urine Opiates Screen Urine Methadone Screen Ur Barbiturates Screen Ur Tricyclics Screen Ur Amphetamines Screen U Benzodiazepines Scrn Urine Cocaine Screen U Cannabinoids Screen COVID-19 Source SARS-CoV-2 (PCR) Influenza Type A (PCR) Influenza Type B (PCR) RSV (PCR) MRSA (TEM-PCR) Add-On Test Request 02/28/25 02/28/25 02/28/25 17:33 20:04 20:08 WBC RBC Hgb Hct MCV MCH MCHC RDW Plt Count MPV Immature Gran % Neutrophils % Band Neutrophils % Lymphocytes % Atypical Lymphs % Monocytes % Eosinophils % Basophils % Metamyelocytes % Nucleated RBC % Absolute Neutrophils Absolute Lymphocytes Absolute Monocytes Absolute Eosinophils Absolute Basophils RBC Morphology PT INR APTT ABG Sample Site ABG pH ABG pCO2 ABG pO2 ABG HCO3 ABG Total CO2 ABG O2 Saturation ABG Base Excess VBG pH VBG pCO2 VBG pO2 VBG HCO3 VBG Total CO2 VBG O2 Saturation VBG Base Excess VBG Lactate 2.0 FiO2 Sodium Potassium 2.8 L* Chloride Carbon Dioxide Anion Gap BUN Creatinine Est GFR (CKD-EPI 2020) Glucose Calcium Magnesium Total Bilirubin AST ALT Alkaline Phosphatase Troponin I 32 32 NT-Pro-B Natriuret Pep Total Protein Albumin Lipase Procalcitonin Urine Color Urine Clarity Urine pH Ur Specific [place] Urine Protein Urine Ketones Urine Blood Urine Nitrite Urine Bilirubin Urine Urobilinogen Ur Leukocyte Esterase Urine RBC Urine WBC Ur Epithelial Cells Urine Crystals Urine Bacteria Urine Casts Urine Mucus Ur Culture Indicated? Urine Glucose Random Vancomycin Urine Opiates Screen Urine Methadone Screen Ur Barbiturates Screen Ur Tricyclics Screen Ur Amphetamines Screen U Benzodiazepines Scrn Urine Cocaine Screen U Cannabinoids Screen COVID-19 Source Nasopharynx SARS-CoV-2 (PCR) Positive A Influenza Type A (PCR) Negative Influenza Type B (PCR) Negative RSV (PCR) Negative MRSA (TEM-PCR) Add-On Test Request 02/28/25 02/28/25 02/28/25 20:20 21:59 22:00 WBC RBC Hgb Hct MCV MCH MCHC RDW Plt Count MPV Immature Gran % Neutrophils % Band Neutrophils % Lymphocytes % Atypical Lymphs % Monocytes % Eosinophils % Basophils % Metamyelocytes % Nucleated RBC % Absolute Neutrophils Absolute Lymphocytes Absolute Monocytes Absolute Eosinophils Absolute Basophils RBC Morphology PT INR APTT ABG Sample Site Right Radial ABG pH 7.34 L ABG pCO2 41 ABG pO2 63 L ABG HCO3 22 ABG Total CO2 21 L ABG O2 Saturation 92 L ABG Base Excess -4 L VBG pH VBG pCO2 VBG pO2 VBG HCO3 VBG Total CO2 VBG O2 Saturation VBG Base Excess VBG Lactate 1.8 FiO2 60 Sodium Potassium Chloride Carbon Dioxide Anion Gap BUN Creatinine Est GFR (CKD-EPI 2020) Glucose Calcium Magnesium Total Bilirubin AST ALT Alkaline Phosphatase Troponin I NT-Pro-B Natriuret Pep Total Protein Albumin Lipase Procalcitonin Urine Color Urine Clarity Urine pH Ur Specific [place] Urine Protein Urine Ketones Urine Blood Urine Nitrite Urine Bilirubin Urine Urobilinogen Ur Leukocyte Esterase Urine RBC Urine WBC Ur Epithelial Cells Urine Crystals Urine Bacteria Urine Casts Urine Mucus Ur Culture Indicated? Urine Glucose Random Vancomycin Urine Opiates Screen Negative Urine Methadone Screen Negative Ur Barbiturates Screen Negative Ur Tricyclics Screen Negative Ur Amphetamines Screen Negative U Benzodiazepines Scrn Positive A Urine Cocaine Screen Positive A U Cannabinoids Screen Positive A COVID-19 Source SARS-CoV-2 (PCR) Influenza Type A (PCR) Influenza Type B (PCR) RSV (PCR) MRSA (TEM-PCR) Negative Add-On Test Request 03/01/25 03/01/25 03/01/25 03:00 03:04 05:35 WBC 2.18 L RBC 3.77 L Hgb 9.0 L Hct 29.2 L MCV 78 L MCH 23.9 L MCHC 30.8 L RDW 18.6 H Plt Count 356 MPV 9.2 Immature Gran % See Differential Neutrophils % 42.0 Band Neutrophils % 10 Lymphocytes % 31.0 Atypical Lymphs % 3 Monocytes % 7.0 Eosinophils % 0.0 Basophils % 1.0 Metamyelocytes % 6 Nucleated RBC % 0.0 Absolute Neutrophils 1.13 L Absolute Lymphocytes 0.74 L Absolute Monocytes 0.15 Absolute Eosinophils 0.00 Absolute Basophils 0.02 RBC Morphology Normal PT INR APTT 45.7 H ABG Sample Site ABG pH ABG pCO2 ABG pO2 ABG HCO3 ABG Total CO2 ABG O2 Saturation ABG Base Excess VBG pH 7.27 L VBG pCO2 41 VBG pO2 53 VBG HCO3 19 L VBG Total CO2 19 L VBG O2 Saturation 84 VBG Base Excess -8 L VBG Lactate FiO2 Sodium Potassium Chloride Carbon Dioxide Anion Gap BUN Creatinine Est GFR (CKD-EPI 2020) Glucose Calcium Magnesium 1.3 L Total Bilirubin AST ALT Alkaline Phosphatase Troponin I NT-Pro-B Natriuret Pep Total Protein Albumin Lipase Procalcitonin Urine Color Urine Clarity Urine pH Ur Specific [place] Urine Protein Urine Ketones Urine Blood Urine Nitrite Urine Bilirubin Urine Urobilinogen Ur Leukocyte Esterase Urine RBC Urine WBC Ur Epithelial Cells Urine Crystals Urine Bacteria Urine Casts Urine Mucus Ur Culture Indicated? Urine Glucose Random Vancomycin 9.9 Urine Opiates Screen Urine Methadone Screen Ur Barbiturates Screen Ur Tricyclics Screen Ur Amphetamines Screen U Benzodiazepines Scrn Urine Cocaine Screen U Cannabinoids Screen COVID-19 Source SARS-CoV-2 (PCR) Influenza Type A (PCR) Influenza Type B (PCR) RSV (PCR) MRSA (TEM-PCR) Add-On Test Request DONE 03/01/25 03/01/25 05:39 12:35 WBC RBC Hgb Hct MCV MCH MCHC RDW Plt Count MPV Immature Gran % Neutrophils % Band Neutrophils % Lymphocytes % Atypical Lymphs % Monocytes % Eosinophils % Basophils % Metamyelocytes % Nucleated RBC % Absolute Neutrophils Absolute Lymphocytes Absolute Monocytes Absolute Eosinophils Absolute Basophils RBC Morphology PT INR APTT ABG Sample Site ABG pH ABG pCO2 ABG pO2 ABG HCO3 ABG Total CO2 ABG O2 Saturation ABG Base Excess VBG pH 7.26 L VBG pCO2 39 L VBG pO2 57 VBG HCO3 17 L VBG Total CO2 17 L VBG O2 Saturation 87 VBG Base Excess -10 L VBG Lactate FiO2 Sodium 137 Potassium 4.0 D Chloride 106 Carbon Dioxide 20.0 Anion Gap 11 BUN 21 Creatinine 0.75 Est GFR (CKD-EPI 2020) 80.78 Glucose 103 Calcium 6.8 L Magnesium Total Bilirubin 0.2 AST 41 H ALT 20 Alkaline Phosphatase 59 Troponin I NT-Pro-B Natriuret Pep Total Protein 5.2 L Albumin 3.0 L Lipase Procalcitonin Urine Color Urine Clarity Urine pH Ur Specific [place] Urine Protein Urine Ketones Urine Blood Urine Nitrite Urine Bilirubin Urine Urobilinogen Ur Leukocyte Esterase Urine RBC Urine WBC Ur Epithelial Cells Urine Crystals Urine Bacteria Urine Casts Urine Mucus Ur Culture Indicated? Urine Glucose Random Vancomycin Urine Opiates Screen Urine Methadone Screen Ur Barbiturates Screen Ur Tricyclics Screen Ur Amphetamines Screen U Benzodiazepines Scrn Urine Cocaine Screen U Cannabinoids Screen COVID-19 Source SARS-CoV-2 (PCR) Influenza Type A (PCR) Influenza Type B (PCR) RSV (PCR) MRSA (TEM-PCR) Add-On Test Request VTE Prohylaxis Risk Level: Moderate/High Risk Contraindications: None Prophylaxis: Pharmacologic Time Spent with Patient Time Spent with Patient: >50 minutes Time was spent: preparing to see the patient(eg.review tests), obtaining and/or reviewing separately otained hiistory, ordering medications,tests, procedures, referring, communicating with other health healthcare receptionist, indepentently interpreting results, counseling the patient and care coordination
[2025-03-01] MEDS: MAGNESIUM SULFATE 2 GM/50 ML BAG IV_INF ×2 (13:51→21:41)
[2025-03-01] MEDS: SODIUM BICARBONATE 150 MEQ in DEXTROSE 5%-WATER 850 ML 100 MEQ IV (13:55)
[2025-03-01] MEDS: PROPOFOL 1,000 MG/100 ML BTL 27.739 MG IV_INF (13:59)
--- NOTE | 2025-03-01 14:57 | W.ANESAIR ---
Airway Management Note Procedure Date and Time DO NOT use this note for patients in the OR, Use Intraop Record Instead Date Performed: 03/01/25 Procedure Time: : Procedure Location Procedure Location: Intensive Care Unit Requesting Provider: Arturo Carter Number of Previous Intubation attempts by other providers: 0 Procedure Type Procedure Type: Urgent Pre-Induction Setup Sterility: Hand Hygiene, Surgical Cap, Eye Protection and N95 Mask Preinduction Setup: Standard monitors applied, BVM at bedside, Suction ready, Airway equipment ready, Medications ready, IV/IO access patent & flowing and Post induction medications ready Induction Induction Time: 14:20 Induction setup: Pt. evaluated prior to induction and BiPAP/CPAP Induction Medications (Indicate Dose Given): Ketamine IV Dose:: 90mg IVP and Rocuronium IV Dose:: 100mg IVP Mask Ventilation: Easy and Oral Airway Used Airway Device Airway Type: Intubation Laryngoscopy: Edentulous (upper) Airway Grade: 2b Airway Blades: Glidescope 3 Endotracheal Tube: Oral and 7.0mm ETT Depth Where Secured (cm): 22 Placement Confirmation: Cuff inflated with minimally occlusive pressure, Secured with commercial device, Bilateral breath sounds and ETCO2 waveform present Number of Attempts (See previous attempts in note section): 1 Post Induction Management Post Induction Medications (Indicate Dose Given): Managed by Requesting Provider Gastric Tube Gastric Tube: Placed by Anesthesia Gastric Tube Placement: Left Nare Tube Size (Fr): 16 Depth Secured (cm): 65 Procedure Complications Procedure Complications: None Procedure Outcome Procedure Outcome: Successful Procedure Comment: CXR ordered both procedure. Proceduralist Performed By: Lamonte Goldman
[2025-03-01] MEDS: Cefepime 2 GM VIAL (15:00)
--- NOTE | 2025-03-01 15:30 | DI.RAD_ITS ---
Exam(s) XR PORTABLE CHEST AP EXAM: XR PORTABLE CHEST AP CLINICAL HISTORY: Post intubation and NG Tube placement. TECHNIQUE: 2D digital imaging was performed. COMPARISON: CT CT CHEST PE CTA from 02/28/2025 CR,XR XR PORTABLE CHEST AP POST LINE from 02/28/2025 FINDINGS: Single AP portable view. Heart size remains normal. Mediastinum not widened There is no radiographic improvement in the extensive bilateral infiltrates. No obvious pleural effusions. Distal tip of the left subclavian central line is at the SVC-RA junction, unchanged. Distal tip of the endotracheal tube appears to be at the clavicular level. Distal tip of the NG tube is in the stomach. IMPRESSION: No radiographic improvement extensive bilateral infiltrates which do not appear to be associated with pleural effusions. DATA REPOSITORY: RADIATION DOSE DELIVERED:
[2025-03-01 15:48] LABS: Anion Gap 9.6 mmol/L (3-11); BUN 21 mg/dL (9-23); CO2 21.4 mmol/L (20.0-31.0); Calcium 6.8 mg/dL (8.3-10.6); Chloride 110 mmol/L (98-107); Glucose 92 mg/dL (74-106); Potassium 4.5 mmol/L (3.5-5.1); Sodium 141 mmol/L (136-145)
[2025-03-01] MEDS: dexmedeTOMidine IN 0.9 % NACL 400 MCG/100 ML BTL 15.411 MCG IV (17:20)
[2025-03-01] MEDS: PROPOFOL 1,000 MG/100 ML BTL 20.342 MG IV_INF (18:48)
[2025-03-01] MEDS: Norepinephrine in D5W 8 MG/250 ML BAG 75 MG IV (21:15)
[2025-03-01] MEDS: PROPOFOL 1,000 MG/100 ML BTL 29.589 MG IV_INF (21:39)
[2025-03-01] MEDS: fentaNYL 100 MCG/2 ML VIAL 50 MCG IVP ×2 (21:43→23:18)
[2025-03-01] MEDS: QUEtiapine 50 MG TAB PO (21:44)
[2025-03-01] MEDS: traZODone 50 MG TAB PO (21:44)
[2025-03-01] MEDS: dexmedeTOMidine IN 0.9 % NACL 400 MCG/100 ML BTL 23.116 MCG IV (22:03)
[2025-03-01 23:19] LABS: BE (Venous) -3 mmol/L (-2-3); HCO3 (Venous) 23 mmol/L (23-28); O2 Sat (Venous) 92 %; TCO2 (Venous) 22 mmol/L (24-29); pCO2 (Venous) 42 mmHg (41-51); pO2 (Venous) 61 mmHg
[2025-03-01] MEDS: Ibuprofen 600 MG TAB (23:20)
[2025-03-01] MEDS: Norepinephrine in D5W 8 MG/250 ML BAG 112.5 MG IV (23:58)
[2025-03-02] VITALS (38 sets, daily range): BP systolic 76–129; BP diastolic 54–88; PULSE 112–124; RESP 21–38; TEMP 38.9–40.1; O2SAT 95–99
[2025-03-02] MEDS: fentaNYL 100 MCG/2 ML VIAL 50 MCG IVP ×3 (00:42→05:28)
[2025-03-02] MEDS: ACETAMINOPHEN 1,000 MG/100 ML BAG 400 MG IVPB (01:47)
[2025-03-02] MEDS: PROPOFOL 1,000 MG/100 ML BTL 27.739 MG IV_INF (01:47)
[2025-03-02] MEDS: Normal Saline 1,000 ML 125 ML IV (01:54)
[2025-03-02] MEDS: Normal Saline Flush 10 ML SYR IVP (02:11)
[2025-03-02] MEDS: dexmedeTOMidine IN 0.9 % NACL 400 MCG/100 ML BTL 23.116 MCG IV (02:18)
[2025-03-02 02:19] LABS: BE (Venous) -1 mmol/L (-2-3); HCO3 (Venous) 24 mmol/L (23-28); O2 Sat (Venous) 81 %; TCO2 (Venous) 23 mmol/L (24-29); pCO2 (Venous) 42 mmHg (41-51); pO2 (Venous) 46 mmHg
[2025-03-02] MEDS: Norepinephrine in D5W 8 MG/250 ML BAG 84.375 MG IV ×2 (02:19→05:29)
--- NOTE | 2025-03-02 04:18 | DSE_ITS ---
Date of service: 03/02/25 Time of Service: 04:18 DS: Diagnosis Discharge Diagnosis (1) Septic shock: Status: Acute (2) Gram-positive cocci bacteremia: Status: Acute (3) Pneumonia: Status: Acute (4) COVID: Status: Acute (5) Acute respiratory failure with hypoxia and hypercarbia: Status: Acute (6) Cocaine abuse: Status: Acute (7) Bipolar 1 disorder: Status: Acute (8) Low magnesium level: Status: Acute Discharge Plan Disposition Patient Disposition: Transfer-Acute Inpatient Care Specific Acute Inpt Facility: [place] Anticipated Discharge Date/Time: 03/02/25 14:07 Condition: Deteriorating Discharge Details Reason For Visit: Septic Shock Admit Date/Time: 02/28/25 21:30 Admit Provider: Stu Fuentes Attending Provider: Stu Fuentes Primary Care Provider: Unknown,Unknown Hospital Course Hospital Course: This is a 54-year-old female who was admitted on 02/28/25 for respiratory distress. The day prior she had taken a commercial COVID test which turned positive. On the day of admission she was noted to have significant worsening of her dyspnea. Patient activated EMS and was seen in our ED. While she was in the ED she was noted to have worsening respiratory distress that initially responded to BiPAP but eventually needed intubation. While she was in the ED she did get a CT scan of her chest as well as multiple x-rays. CT of the chest did not show any PE but did show multifocal ground glass opacities consistent with pneumonia several areas which show cavitary cystic changes. Considering the patient's age as well as the fact that she had no obvious underlying medical conditions we did admit her to our ICU with the hopes of improving her condition with appropriate responses to septic shock, atypical and typical pneumonia, and COVID. While she was in the ICU she was given both vancomycin and cefepime. She was also on remdesivir, acterma and steroids. On the day of admission the patient was actually able to self DC her ET tube despite being in soft re straints. Initially an attempt was made to treat her with BiPAP again but this unfortunately failed. On the night of the the patient was noted to have significant hyperthermia which did respond to antipyretics and other cooling measures. There was some concern that this was a reaction to Seroquel which was being used to help her with her mechanical ventilation. Of note the patient was also on Precedex and norepinephrine for anxiety and pressure support respectively. On the I did put a call into [facility] and was able to speak to with Dr. Acuna (Hospitalist) and Dr Clay (pulm/cc) who agreed to take the patient in transfer. The reason for the transfer is for ICU/critical care experience as well as infectious disease consultation. We do have a material liaison/critical care physician here but unfortunately is currently vacation. In regards to the laboratory data, she does have a gram-positive cocci cultures x 2. She does have leukopenia with her white count being 2.18. She is mildly anemic with a hemoglobin of 9 and hematocrit of 29. MCV is low at 78. An echocardiogram has been done but not read. INR is 1.3. There is a blood gas DVT pending at this moment. On admission she was mildly or moderately hypokalemic at 2.8 which is currently resolved and is 4.5. Patient is hypocalcemic with a calcium of 6.8. Hypomagnesemic with a magnesium of 1.3. Hepatitis B and C are pending and HIV test is pending patient was noted to have mild UTI with trace leukocyte esterase but also hematuria. Her urine drug screen was positive for benzos cocaine and cannabinoids. Her COVID test was also positive. At this point we are awaiting transportation an actual bed assignment. Let me after her first intubation NG tube was attempted to be deployed it was not able to do most likely due to a hiatal hernia. Home Meds and New Rx's Prescriptions: No Action quetiapine 50 mg tablet 50 mg PO HS Rx Instructions: 1 to 2 tablets at bedtime melatonin 10 mg capsule 10 mg PO HS PRN trazodone 50 mg tablet 50 mg PO HS Rx Instructions: 1 to 2 tablets at bedtime hydroxyzine pamoate [Vistaril] 25 mg capsule 25 mg PO HS Rx Instructions: 1 TO 2 CAPSULES EVERY EVENING methylphenidate HCl [Metadate CD] 50 mg capsule, ER biphasic 30-70 50 mg PO DAILY lamotrigine [Lamictal] 200 mg tablet 200 mg PO BID propranolol 20 mg tablet 20 mg PO TID quetiapine 300 mg tablet 300 mg PO DAILY Discharge Instructions Activity:: intubated Equipment/Supplies:: No Equipment Needed Diet:: Other DS: Summary Time Spent with Patient providing and/or coordinating discharge services: Greater than 30 minutes Status at Discharge Functional status at discharge: bed bound Overall status at discharge: patient is not back to baseline Mental Status: other Speech and Movement: other Mood: other Affect: other Exam Narrative Exam Narrative: heent normocephalic atraumatic patient is intubated Neck no lymphadenopathy or JVD Cardiovascular tachycardic but no murmur rubs or gallops Lungs bilateral crackles worse on the right side Abdomen scaphoid bowel sounds decreased x 4 Extremities no cyanosis clubbing or edema Pal[place]ios in place Psych Mental Status: other Speech and Movement: other Mood: other Affect: other DS: Data Vitals/I&O Vitals and I&O: Vital Signs Temperature 39.1 C H 03/02/25 03:27 Temperature Source Tympanic 03/02/25 03:27 Pulse 115 H 03/02/25 02:31 Pulse 116 H 03/02/25 02:48 Respiratory Rate 27 H 03/02/25 02:48 Respiratory Effort Non-Labored 03/01/25 00:38 Respiratory Depth Normal 02/28/25 21:30 Respiratory Pattern Normal 02/28/25 21:30 Blood Pressure 88/56 L 03/02/25 02:48 Blood Pressure Mean 64 03/02/25 02:31 Blood Pressure Position Supine 02/28/25 17:04 Pulse Oximetry 95 03/02/25 02:48 Respiratory End-tidal CO2 38 03/02/25 02:48 Oxygen Delivery Method Mechanical Ventilator 03/01/25 18:01 Oxygen Flow Rate 0 03/01/25 18:01 Fraction of Inspired Oxygen (FIO2) 40 03/02/25 02:48 Intake & Output 03/01/25 03/01/25 03/02/25 11:59 23:59 11:59 Intake Total 2105.152 / 5055.785 2950.633 / 5055.785 1358.710 / 1358.710 Output Total 1400 / 2800 1400 / 2800 625 / 625 Balance 705.152 / 2255.785 1550.633 / 2255.785 733.710 / 733.710 Intake: IV 2105.152 / 5055.785 2950.633 / 5055.785 1358.710 / 1358.710 Output: Urine 1400 / 2800 1400 / 2800 625 / 625 Other: Urine Color Yellow Yellow Yellow Urine Appearance Cloudy Clear Data Completed and Pending Pending Labs at Discharge: 02/28/25 02/28/25 02/28/25 14:32 17:16 17:25 WBC 3.32 L RBC 4.05 Hgb 9.6 L Hct 31.4 L MCV 78 L MCH 23.7 L MCHC 30.6 L RDW 18.3 H Plt Count 357 MPV 9.6 Immature Gran % 0.0 Neutrophils % 36.0 Band Neutrophils % 17 Lymphocytes % 29.0 Atypical Lymphs % 4 Monocytes % 7.0 Eosinophils % 0.0 Basophils % 0.0 Metamyelocytes % 7 Nucleated RBC % 0.0 Absolute Neutrophils 1.76 Absolute Lymphocytes 1.10 L Absolute Monocytes 0.23 Absolute Eosinophils 0.00 Absolute Basophils 0.00 RBC Morphology Normal PT 12.6 H INR 1.3 H APTT 28.1 ABG Sample Site Left Radial ABG pH 7.24 L ABG pCO2 57 H ABG pO2 73 L ABG HCO3 24 ABG Total CO2 23 ABG O2 Saturation 93 L ABG Base Excess -4 L VBG pH 7.32 VBG pCO2 45 VBG pO2 48 VBG HCO3 23 VBG Total CO2 22 L VBG O2 Saturation 80 VBG Base Excess -3 L VBG Lactate 3.6 H* FiO2 65 Sodium 135 L Potassium 2.5 L* Chloride 101 Carbon Dioxide 23.5 Anion Gap 10.5 BUN 17 Creatinine 0.85 Est GFR (CKD-EPI 2020) 69.91 Glucose 142 H Calcium 7.4 L Magnesium 1.3 L Total Bilirubin 0.4 AST 27 ALT 15 Alkaline Phosphatase 80 Troponin I 21 NT-Pro-B Natriuret Pep 2916 H Total Protein 6.3 Albumin 3.7 Lipase 16 Procalcitonin 14.05 Urine Color Yellow Urine Clarity Clear Urine pH 5.5 Ur Specific [place] 1.020 Urine Protein 100 H Urine Ketones Trace H Urine Blood Large H Urine Nitrite Negative Urine Bilirubin Negative Urine Urobilinogen 0.2 Ur Leukocyte Esterase Small H Urine RBC 10-20 H Urine WBC 10-20 H Ur Epithelial Cells Many Urine Crystals Negative Urine Bacteria Few Urine Casts Negative Urine Mucus Negative Ur Culture Indicated? No/Sq. Contamination Urine Glucose 250 H Random Vancomycin Urine Opiates Screen Urine Methadone Screen Ur Barbiturates Screen Ur Tricyclics Screen Ur Amphetamines Screen U Benzodiazepines Scrn Urine Cocaine Screen U Cannabinoids Screen COVID-19 Source SARS-CoV-2 (PCR) Hep Bs Antigen Hep Bs Antibody Hep Bs Antibody, Quant Hep B Core Total Ab Hepatitis C Antibody HIV 1&2 Ag/Ab, 4th Gen Influenza Type A (PCR) Influenza Type B (PCR) RSV (PCR) MRSA (TEM-PCR) B-(1,3)-D-Glucan Quant B-(1,3)-D-Glucan Qual Add-On Test Request 02/28/25 02/28/25 02/28/25 17:33 20:04 20:08 WBC RBC Hgb Hct MCV MCH MCHC RDW Plt Count MPV Immature Gran % Neutrophils % Band Neutrophils % Lymphocytes % Atypical Lymphs % Monocytes % Eosinophils % Basophils % Metamyelocytes % Nucleated RBC % Absolute Neutrophils Absolute Lymphocytes Absolute Monocytes Absolute Eosinophils Absolute Basophils RBC Morphology PT INR APTT ABG Sample Site ABG pH ABG pCO2 ABG pO2 ABG HCO3 ABG Total CO2 ABG O2 Saturation ABG Base Excess VBG pH VBG pCO2 VBG pO2 VBG HCO3 VBG Total CO2 VBG O2 Saturation VBG Base Excess VBG Lactate 2.0 FiO2 Sodium Potassium 2.8 L* Chloride Carbon Dioxide Anion Gap BUN Creatinine Est GFR (CKD-EPI 2020) Glucose Calcium Magnesium Total Bilirubin AST ALT Alkaline Phosphatase Troponin I 32 32 NT-Pro-B Natriuret Pep Total Protein Albumin Lipase Procalcitonin Urine Color Urine Clarity Urine pH Ur Specific [place] Urine Protein Urine Ketones Urine Blood Urine Nitrite Urine Bilirubin Urine Urobilinogen Ur Leukocyte Esterase Urine RBC Urine WBC Ur Epithelial Cells Urine Crystals Urine Bacteria Urine Casts Urine Mucus Ur Culture Indicated? Urine Glucose Random Vancomycin Urine Opiates Screen Urine Methadone Screen Ur Barbiturates Screen Ur Tricyclics Screen Ur Amphetamines Screen U Benzodiazepines Scrn Urine Cocaine Screen U Cannabinoids Screen COVID-19 Source Nasopharynx SARS-CoV-2 (PCR) Positive A Hep Bs Antigen Hep Bs Antibody Hep Bs Antibody, Quant Hep B Core Total Ab Hepatitis C Antibody HIV 1&2 Ag/Ab, 4th Gen Influenza Type A (PCR) Negative Influenza Type B (PCR) Negative RSV (PCR) Negative MRSA (TEM-PCR) B-(1,3)-D-Glucan Quant B-(1,3)-D-Glucan Qual Add-On Test Request 02/28/25 02/28/25 02/28/25 20:20 21:59 22:00 WBC RBC Hgb Hct MCV MCH MCHC RDW Plt Count MPV Immature Gran % Neutrophils % Band Neutrophils % Lymphocytes % Atypical Lymphs % Monocytes % Eosinophils % Basophils % Metamyelocytes % Nucleated RBC % Absolute Neutrophils Absolute Lymphocytes Absolute Monocytes Absolute Eosinophils Absolute Basophils RBC Morphology PT INR APTT ABG Sample Site Right Radial ABG pH 7.34 L ABG pCO2 41 ABG pO2 63 L ABG HCO3 22 ABG Total CO2 21 L ABG O2 Saturation 92 L ABG Base Excess -4 L VBG pH VBG pCO2 VBG pO2 VBG HCO3 VBG Total CO2 VBG O2 Saturation VBG Base Excess VBG Lactate 1.8 FiO2 60 Sodium Potassium Chloride Carbon Dioxide Anion Gap BUN Creatinine Est GFR (CKD-EPI 2020) Glucose Calcium Magnesium Total Bilirubin AST ALT Alkaline Phosphatase Troponin I NT-Pro-B Natriuret Pep Total Protein Albumin Lipase Procalcitonin Urine Color Urine Clarity Urine pH Ur Specific [place] Urine Protein Urine Ketones Urine Blood Urine Nitrite Urine Bilirubin Urine Urobilinogen Ur Leukocyte Esterase Urine RBC Urine WBC Ur Epithelial Cells Urine Crystals Urine Bacteria Urine Casts Urine Mucus Ur Culture Indicated? Urine Glucose Random Vancomycin Urine Opiates Screen Negative Urine Methadone Screen Negative Ur Barbiturates Screen Negative Ur Tricyclics Screen Negative Ur Amphetamines Screen Negative U Benzodiazepines Scrn Positive A Urine Cocaine Screen Positive A U Cannabinoids Screen Positive A COVID-19 Source SARS-CoV-2 (PCR) Hep Bs Antigen Hep Bs Antibody Hep Bs Antibody, Quant Hep B Core Total Ab Hepatitis C Antibody HIV 1&2 Ag/Ab, 4th Gen Influenza Type A (PCR) Influenza Type B (PCR) RSV (PCR) MRSA (TEM-PCR) Negative B-(1,3)-D-Glucan Quant B-(1,3)-D-Glucan Qual Add-On Test Request 03/01/25 03/01/25 03/01/25 03:00 03:04 05:35 WBC 2.18 L RBC 3.77 L Hgb 9.0 L Hct 29.2 L MCV 78 L MCH 23.9 L MCHC 30.8 L RDW 18.6 H Plt Count 356 MPV 9.2 Immature Gran % See Differential Neutrophils % 42.0 Band Neutrophils % 10 Lymphocytes % 31.0 Atypical Lymphs % 3 Monocytes % 7.0 Eosinophils % 0.0 Basophils % 1.0 Metamyelocytes % 6 Nucleated RBC % 0.0 Absolute Neutrophils 1.13 L Absolute Lymphocytes 0.74 L Absolute Monocytes 0.15 Absolute Eosinophils 0.00 Absolute Basophils 0.02 RBC Morphology Normal PT INR APTT 45.7 H ABG Sample Site ABG pH ABG pCO2 ABG pO2 ABG HCO3 ABG Total CO2 ABG O2 Saturation ABG Base Excess VBG pH 7.27 L VBG pCO2 41 VBG pO2 53 VBG HCO3 19 L VBG Total CO2 19 L VBG O2 Saturation 84 VBG Base Excess -8 L VBG Lactate FiO2 Sodium Potassium Chloride Carbon Dioxide Anion Gap BUN Creatinine Est GFR (CKD-EPI 2020) Glucose Calcium Magnesium 1.3 L Total Bilirubin AST ALT Alkaline Phosphatase Troponin I NT-Pro-B Natriuret Pep Total Protein Albumin Lipase Procalcitonin Urine Color Urine Clarity Urine pH Ur Specific [place] Urine Protein Urine Ketones Urine Blood Urine Nitrite Urine Bilirubin Urine Urobilinogen Ur Leukocyte Esterase Urine RBC Urine WBC Ur Epithelial Cells Urine Crystals Urine Bacteria Urine Casts Urine Mucus Ur Culture Indicated? Urine Glucose Random Vancomycin 9.9 Urine Opiates Screen Urine Methadone Screen Ur Barbiturates Screen Ur Tricyclics Screen Ur Amphetamines Screen U Benzodiazepines Scrn Urine Cocaine Screen U Cannabinoids Screen COVID-19 Source SARS-CoV-2 (PCR) Hep Bs Antigen Hep Bs Antibody Hep Bs Antibody, Quant Hep B Core Total Ab Hepatitis C Antibody HIV 1&2 Ag/Ab, 4th Gen Influenza Type A (PCR) Influenza Type B (PCR) RSV (PCR) MRSA (TEM-PCR) B-(1,3)-D-Glucan Quant Pending B-(1,3)-D-Glucan Qual Pending Add-On Test Request DONE 03/01/25 03/01/25 03/01/25 05:39 12:35 15:14 WBC RBC Hgb Hct MCV MCH MCHC RDW Plt Count MPV Immature Gran % Neutrophils % Band Neutrophils % Lymphocytes % Atypical Lymphs % Monocytes % Eosinophils % Basophils % Metamyelocytes % Nucleated RBC % Absolute Neutrophils Absolute Lymphocytes Absolute Monocytes Absolute Eosinophils Absolute Basophils RBC Morphology PT INR APTT ABG Sample Site ABG pH ABG pCO2 ABG pO2 ABG HCO3 ABG Total CO2 ABG O2 Saturation ABG Base Excess VBG pH 7.26 L VBG pCO2 39 L VBG pO2 57 VBG HCO3 17 L VBG Total CO2 17 L VBG O2 Saturation 87 VBG Base Excess -10 L VBG Lactate FiO2 Sodium 137 141 Potassium 4.0 D 4.5 Chloride 106 110 H Carbon Dioxide 20.0 21.4 Anion Gap 11 9.6 BUN 21 21 Creatinine 0.75 0.62 Est GFR (CKD-EPI 2020) 80.78 100.62 Glucose 103 92 Calcium 6.8 L 6.8 L Magnesium Total Bilirubin 0.2 AST 41 H ALT 20 Alkaline Phosphatase 59 Troponin I NT-Pro-B Natriuret Pep Total Protein 5.2 L Albumin 3.0 L Lipase Procalcitonin Urine Color Urine Clarity Urine pH Ur Specific [place] Urine Protein Urine Ketones Urine Blood Urine Nitrite Urine Bilirubin Urine Urobilinogen Ur Leukocyte Esterase Urine RBC Urine WBC Ur Epithelial Cells Urine Crystals Urine Bacteria Urine Casts Urine Mucus Ur Culture Indicated? Urine Glucose Random Vancomycin Urine Opiates Screen Urine Methadone Screen Ur Barbiturates Screen Ur Tricyclics Screen Ur Amphetamines Screen U Benzodiazepines Scrn Urine Cocaine Screen U Cannabinoids Screen COVID-19 Source SARS-CoV-2 (PCR) Hep Bs Antigen Pending Hep Bs Antibody Pending Hep Bs Antibody, Quant Pending Hep B Core Total Ab Pending Hepatitis C Antibody Pending HIV 1&2 Ag/Ab, 4th Gen Pending Influenza Type A (PCR) Influenza Type B (PCR) RSV (PCR) MRSA (TEM-PCR) B-(1,3)-D-Glucan Quant B-(1,3)-D-Glucan Qual Add-On Test Request 03/01/25 03/02/25 03/02/25 23:15 02:10 05:35 WBC Pending RBC Pending Hgb Pending Hct Pending MCV Pending MCH Pending MCHC Pending RDW Pending Plt Count Pending MPV Pending Immature Gran % Neutrophils % Band Neutrophils % Lymphocytes % Atypical Lymphs % Monocytes % Eosinophils % Basophils % Metamyelocytes % Nucleated RBC % Absolute Neutrophils Absolute Lymphocytes Absolute Monocytes Absolute Eosinophils Absolute Basophils RBC Morphology PT Pending INR Pending APTT ABG Sample Site ABG pH ABG pCO2 ABG pO2 ABG HCO3 ABG Total CO2 ABG O2 Saturation ABG Base Excess VBG pH 7.35 7.37 Pending VBG pCO2 42 42 Pending VBG pO2 61 46 Pending VBG HCO3 23 24 Pending VBG Total CO2 22 L 23 L Pending VBG O2 Saturation 92 81 Pending VBG Base Excess -3 L -1 Pending VBG Lactate FiO2 Sodium Pending Potassium Pending Chloride Pending Carbon Dioxide Pending Anion Gap Pending BUN Pending Creatinine Pending Est GFR (CKD-EPI 2020) Pending Glucose Pending Calcium Pending Magnesium Pending Total Bilirubin Pending AST Pending ALT Pending Alkaline Phosphatase Pending Troponin I NT-Pro-B Natriuret Pep Total Protein Pending Albumin Pending Lipase Procalcitonin Urine Color Urine Clarity Urine pH Ur Specific [place] Urine Protein Urine Ketones Urine Blood Urine Nitrite Urine Bilirubin Urine Urobilinogen Ur Leukocyte Esterase Urine RBC Urine WBC Ur Epithelial Cells Urine Crystals Urine Bacteria Urine Casts Urine Mucus Ur Culture Indicated? Urine Glucose Random Vancomycin Urine Opiates Screen Urine Methadone Screen Ur Barbiturates Screen Ur Tricyclics Screen Ur Amphetamines Screen U Benzodiazepines Scrn Urine Cocaine Screen U Cannabinoids Screen COVID-19 Source SARS-CoV-2 (PCR) Hep Bs Antigen Hep Bs Antibody Hep Bs Antibody, Quant Hep B Core Total Ab Hepatitis C Antibody HIV 1&2 Ag/Ab, 4th Gen Influenza Type A (PCR) Influenza Type B (PCR) RSV (PCR) MRSA (TEM-PCR) B-(1,3)-D-Glucan Quant B-(1,3)-D-Glucan Qual Add-On Test Request Preliminary micro results at discharge 03/01/25 16:00 Urine - Cath [place] Indwelling Urine Culture - Pending 03/01/25 16:15 Blood Blood Culture - Pending 03/01/25 16:23 Blood Blood Culture - Pending 02/28/25 14:32 Blood Blood Culture - Preliminary Gram positive cocci 02/28/25 15:05 Blood Blood Culture - Preliminary Gram positive cocci PFSH All Active Problems (Updated 03/01/25 @ 14:30 by Artuor Carter) Septic shock (Acute) Bipolar 1 disorder (Acute) Cocaine abuse (Acute) Gram-positive cocci bacteremia (Acute) Acute respiratory failure with hypoxia and hypercarbia (Acute) UTI (urinary tract infection) (Acute) Hematuria (Acute) Hiatal hernia (Chronic) COVID (Acute) Low magnesium level (Acute) Low mean corpuscular volume (MCV) (Acute) Elevated brain natriuretic peptide (BNP) level (Acute) Respiratory failure (Acute) Pneumonia (Acute) Medical History (Updated 03/01/25 @ 14:30 by Arturo Carter) ADHD Hypokalemia Social History Smoking/Tobacco Use Status: Unknown Smoking risk assessment performed?: Yes Substance use type: unknown Time Spent with Patient Time Spent with Patient: 70-84 minutes4 Time was spent: preparing to see the patient(eg.review tests), obtaining and/or reviewing separately otained hiistory, ordering medications,tests, procedures, referring, communicating with other health personal care service provider, indepentently interpreting results, counseling the patient and care coordination
[2025-03-02] MEDS: REMDESIVIR 100 MG in Normal Saline 250 ML 250 MG IVPB (04:19)
[2025-03-02] MEDS: Ibuprofen 800 MG TAB NG (05:12)
[2025-03-02] MEDS: PROPOFOL 1,000 MG/100 ML BTL 29.589 MG IV_INF (05:26)
--- NOTE | 2025-03-02 07:48 | PDOC.CMPRO ---
Date of service: 03/02/25 Time of Service: 07:48 Care Management Progress Note Progress Note Text Progress Note Text: During the night Chaya's conditioned deteriorated. Her temperature henrique to over 40 C and did not respond to treatment. She remained intubated, unable to tolerate Bipap. The decision was made to transfer her to a tertiary care hospital with Infectious Disease and Pukmonary specialists. She was transferred to [place], [place] via EMS Discharge Anticipated Barriers to Discharge: None Identified Transportation: EMS Social Determinants of Health Screening Will the Patient Participate in the Screening?: Unable to obtain
--- NOTE | 2025-03-02 09:00 | NUR.NOTE ---
Nursing Note:The nurse at [facility] called about the patient asking for allergies and contact information for next of kin. It is charted that she has no known drug allergies and we do not have contact information for anyone in her chart. The nurse was notified of this.
--- NOTE | 2025-03-02 09:13 | TELEFU_ITS ---
Date of service: 03/02/25 Time of Service: 09:13 Nutrition Note NOTE: Chaya currently in ICU on COVID precautions, being treated for this as well as septic shock, bacteremia, PNA, acute resp failure, Bipolar 1 disorder, substance abuse and hypomagnesemia. Pt transferring to [facility] for care this afternoon. Diet order for clear liquids yesterday has been discontinued. Current BMI reflects underweight. Weight history not extensive for comparison, but would assume unintentional wt loss due to psycho/social/environmental factors. Would need more in-depth interview to determine recent oral intake, weight history - however unable to obtain at this time. Pt sent clear liquid protein supps yesterday which resulted in no intake. Pt at high risk for malnutrition - would recommend appropriate interventions based on pt's clinical progress toward a safe oral intake. Would suggest 5,000IU vitamin D per daily, 220mg zinc sulfate daily and 500mg vitamin C BID. Expecting transfer this afternoon - will continue to monitor. Time Spent in Nutritional Counseling and Treatment: 0
[2025-03-02 19:53] LABS: HIV-1/2 Ag & Ab Screen Negative (Negative)
[2025-03-02 19:56] LABS: Hepatitis C Ab w Rflx HCV PCR Negative (Negative)
[2025-03-02 20:05] LABS: HBs Antibody, Quant >1000.0 mIU/mL (See Note); Hepatitis B Surface Antigen Negative (Negative)
--- NOTE | 2025-03-04 10:50 | NUR.NOTE ---
Nursing Note:looking at CT scan with Dr. Julian
[2025-03-05 12:27] LABS: Fungitell Qualitative Negative (Negative); Fungitell Quantitative Value <31 pg/mL (<60 pg/mL)
== END 2025-03-02 06:05 | disposition short-term general hospital (02) | DRG 871 ==
LOC: ER 18:24 → ICU 22:07
PROVIDERS: Admitting Provider Hospitalist; Emergency Provider General Practice; Responsible Provider Family Medicine; Visit Provider Hospitalist
DX: A41.9 Sepsis, unspecified organism (principal); J12.82 Pneumonia due to coronavirus disease 2019; U07.1 COVID-19; J15.9 Unspecified bacterial pneumonia; R65.21 Severe sepsis with septic shock; J96.01 Acute respiratory failure with hypoxia; J96.02 Acute respiratory failure with hypercapnia; N39.0 Urinary tract infection, site not specified; E87.21 Acute metabolic acidosis; E87.6 Hypokalemia; K44.9 Diaphragmatic hernia without obstruction or gangrene; F14.10 Cocaine abuse, uncomplicated; F31.9 Bipolar disorder, unspecified; R41.82 Altered mental status, unspecified; Z78.1 Physical restraint status; R78.89 Finding of other specified substances, not normally found in blood; R31.9 Hematuria, unspecified; R82.5 Elevated urine levels of drugs, medicaments and biological substances; E83.42 Hypomagnesemia; B97.29 Other coronavirus as the cause of diseases classified elsewhere; D64.9 Anemia, unspecified; D72.819 Decreased white blood cell count, unspecified
CPT/HCPCS: 31500; 00123; 36415; 36556; 36592; 71045; 71275; 76604; 80048; 80053; 80307; 82805; 83690; 84145; 85027; 86704; 86706; 86803; 87040; 87077; 87340; 87389; 87449; 87637; 87641; 93005; 93308; 96365; 96366; 96367; 96375; 99291; J1650; 36600; 80202; 81003; 81015; 83605; 83735; 83880; 84132; 84484; 85025; 85610; 85730; 87086; 87186; 93010; 94002; 94003; 94660; 99223; 99233; 99239; J0131; J0248; J0330; J0692; J1100; J1630; J2060; J2270; J2470; J2704; J2919; J3010; J3262; J3373; J3475; J3480; J3490; J7060